=== PATIENT | female | born 1950 | race Caucasian/White ===

== ENCOUNTER → 2016-11-02 | Outpatient (CLI) | payer MEDICAID ==
--- NOTE | 2016-11-03 11:07 | MM ---
Reason for exam: screening (asymptomatic). Last mammogram was performed 1 year ago. History: Patient is postmenopausal. Family history of breast cancer in paternal aunt. Took hormonal contraceptives for 1 year 6 months. Physical Findings: A clinical breast exam by your physician is recommended on an annual basis and results should be correlated with mammographic findings. MG 3D Screening Mammo W/Cad Bilateral CC and MLO view(s) were taken. Prior study comparison: October 19, 2015, bilateral MG 3d screening mammo w/cad. October 01, 2014, mammogram, performed at [facility]. There are scattered fibroglandular densities. There is chronic nodularity in the right breast. No significant changes when compared with prior studies. ASSESSMENT: Benign, BI-RAD 2 RECOMMENDATION: Routine screening mammogram of both breasts in 1 year.
== END | disposition home or self-care (01) ==
LOC: RADMAMWWP 10:46
PROVIDERS: ATTEND Obstetrics & Gynecology
DX: Z12.31 Encounter for screening mammogram for malignant neoplasm of breast (principal)
CPT/HCPCS: 77063; G0202

== ENCOUNTER → 2017-06-24 | Outpatient (CLI) | payer MEDICAID ==
[2017-06-24 10:13] LABS: CH 30.1; CHCM 32.3; HCT 42.4 % (34.0-46.0); HGB 13.7 gm/dL (11.4-16.0); MCH 30.3 pg (25.0-35.0); MCHC 32.4 g/dL (31.0-37.0); MCV 93.6 fL (80.0-100.0); Mean Platelet Volume 7.3; RBC 4.53 m/uL (3.80-5.40); RDW 13.5 % (11.5-15.5); WBC 7.6 k/uL (3.8-10.6)
[2017-06-24 10:46] LABS: ALT 38 U/L (9-52); AST 31 U/L (14-36); Alkaline Phosphatase 80 U/L (38-126); Anion Gap 9 mmol/L; Blood Urea Nitrogen 19 mg/dL (7-17); Calcium 9.4 mg/dL (8.4-10.2); Carbon Dioxide 27 mmol/L (22-30); Chloride 105 mmol/L (98-107); Cholesterol 200 mg/dL (<200); Creatine Kinase 77 U/L (30-135); Glucose 109 mg/dL (74-99); HDL Cholesterol 53 mg/dL (40-60); Non-African American GFR(MDRD) >60 (>60 ml/min/1.73 sqM); Potassium 4.3 mmol/L (3.5-5.1); Sodium 141 mmol/L (137-145)
[2017-06-24 13:52] LABS: Hemoglobin A1C 5.7 % (4.2-6.1)
== END | disposition home or self-care (01) ==
LOC: LABWHC1 09:12
PROVIDERS: ATTEND Family Medicine
DX: I10 Essential (primary) hypertension (principal); E03.9 Hypothyroidism, unspecified; E78.5 Hyperlipidemia, unspecified; R73.09 Other abnormal glucose
CPT/HCPCS: 36415; 80053; 80061; 82550; 83036; 84443; 85027

== ENCOUNTER → 2017-12-06 | Outpatient (CLI) | payer MEDICAID ==
--- NOTE | 2017-12-11 10:23 | MM ---
Reason for exam: screening (asymptomatic). Last mammogram was performed 1 year and 1 month ago. History: Patient is postmenopausal. Family history of breast cancer in paternal aunt. Took hormonal contraceptives for 1 year 6 months. Physical Findings: A clinical breast exam by your physician is recommended on an annual basis and results should be correlated with mammographic findings. MG 3D Screening Mammo W/Cad Bilateral CC and MLO view(s) were taken. Prior study comparison: November 02, 2016, bilateral MG 3d screening mammo w/cad. October 19, 2015, bilateral MG 3d screening mammo w/cad. There are scattered fibroglandular densities. There is chronic nodularity in the right breast. No significant changes when compared with prior studies. ASSESSMENT: Negative, BI-RAD 1 RECOMMENDATION: Routine screening mammogram of both breasts in 1 year.
== END | disposition home or self-care (01) ==
LOC: RADMAMWWP 10:42
PROVIDERS: ATTEND Obstetrics & Gynecology
DX: Z12.31 Encounter for screening mammogram for malignant neoplasm of breast (principal)
CPT/HCPCS: 77063; 77067

== ENCOUNTER → 2018-06-16 | Outpatient (CLI) | payer MEDICAID ==
[2018-06-16 09:54] LABS: HCT 43.1 % (34.0-46.0); HGB 13.9 gm/dL (11.4-16.0); MCH 29.7 pg (25.0-35.0); MCHC 32.3 g/dL (31.0-37.0); Mean Platelet Volume 6.9; Platelet Count 267 k/uL (150-450); RBC 4.68 m/uL (3.80-5.40); RDW 13.9 % (11.5-15.5); WBC 9.5 k/uL (3.8-10.6)
[2018-06-16 10:09] LABS: ALT 23 U/L (9-52); AST 27 U/L (14-36); Albumin 4.1 g/dL (3.5-5.0); Alkaline Phosphatase 71 U/L (38-126); Anion Gap 8 mmol/L; Blood Urea Nitrogen 17 mg/dL (7-17); Calcium 9.3 mg/dL (8.4-10.2); Carbon Dioxide 29 mmol/L (22-30); Chloride 105 mmol/L (98-107); Cholesterol 183 mg/dL (<200); Creatine Kinase 151 U/L (30-135); Glucose 116 mg/dL (74-99); HDL Cholesterol 41 mg/dL (40-60); LDL Cholesterol,Calculated 109 mg/dL (0-99); Potassium 4.4 mmol/L (3.5-5.1); Sodium 142 mmol/L (137-145); Total Bilirubin 1.8 mg/dL (0.2-1.3); Total Protein 6.9 g/dL (6.3-8.2); Triglycerides 167 mg/dL (<150)
[2018-06-16 18:09] LABS: Hemoglobin A1C 5.6 % (4.0-6.0)
== END | disposition home or self-care (01) ==
LOC: LABWHC1 08:58
PROVIDERS: ATTEND Family Medicine
DX: I10 Essential (primary) hypertension (principal); E78.00 Pure hypercholesterolemia, unspecified; E03.9 Hypothyroidism, unspecified; R73.09 Other abnormal glucose
CPT/HCPCS: 36415; 80053; 80061; 82550; 83036; 84443; 85027

== ENCOUNTER → 2018-12-26 | Outpatient (CLI) | payer MEDICARE, BC ==
--- NOTE | 2018-12-27 13:35 | MM ---
Reason for exam: screening (asymptomatic). Last mammogram was performed 1 year and 1 month ago. History: Patient is postmenopausal. Family history of breast cancer in paternal aunt. Took hormonal contraceptives for 1 year 6 months. Physical Findings: A clinical breast exam by your physician is recommended on an annual basis and results should be correlated with mammographic findings. MG 3D Screening Mammo W/Cad Bilateral CC and MLO view(s) were taken. Prior study comparison: December 06, 2017, bilateral MG 3d screening mammo w/cad. November 02, 2016, bilateral MG 3d screening mammo w/cad. There are scattered fibroglandular densities. Finding: There are typically benign vascular, round, diffuse/scattered, grouped calcifications in both breasts. There is a chronic nodularity in the right breast. There is no discrete abnormality. ASSESSMENT: Benign, BI-RAD 2 RECOMMENDATION: Routine screening mammogram of both breasts in 1 year.
== END ==
LOC: RADMAMWWP 10:46
PROVIDERS: ATTEND Obstetrics & Gynecology
DX: Z12.31 Encounter for screening mammogram for malignant neoplasm of breast (principal)
CPT/HCPCS: 77063; 77067

== ENCOUNTER → 2019-02-14 | Outpatient (CLI) | payer MEDICARE, BC ==
--- NOTE | 2019-02-14 09:46 | FL ---
EXAMINATION TYPE: FL barium swallow DATE OF EXAM: 02/14/2019 HISTORY: Remote history of thyroidectomy and tracheostomy in 2000. Mid esophageal dysphagia and globu s sensation for approximately 2 years. TECHNIQUE: A double contrast esophagram study is performed. 1 minute of fluoroscopic time was utiliz ed with 23 fluoroscopic images saved. COMPARISON: None FINDINGS: The esophagus shows abnormal motility and delayed emptying into the stomach secondary to a distal esophageal short segment stricture. There is abrupt cut off of the distal esophagus with accum ulation of contrast in the distal esophagus proximal to the stricture resulting in moderate to severe intraesophageal reflux. No evidence of hiatal hernia. No significant gastroesophageal reflux was se en during real time performance of this study. IMPRESSION: Distal esophageal short segment stricture. Given the abrupt cut off endoscopy is recommended to exclu de constricting distal esophageal mass. The stricture results in moderate to severe intraesophageal r eflux and esophageal dysmotility.
== END | disposition home or self-care (01) ==
LOC: RADFLWHC 08:38
PROVIDERS: ATTEND Otolaryngology
DX: K22.2 Esophageal obstruction (principal); K22.4 Dyskinesia of esophagus; K21.9 Gastro-esophageal reflux disease without esophagitis
CPT/HCPCS: 74220

== ENCOUNTER → 2020-04-06 | Outpatient (CLI) | payer MEDICARE, BC ==
--- NOTE | 2020-04-08 10:28 | MM ---
Reason for exam: screening (asymptomatic). Last mammogram was performed 1 year and 3 months ago. History: Patient is postmenopausal. Family history of breast cancer in paternal aunt. Took hormonal contraceptives for 1 year 6 months. Physical Findings: A clinical breast exam by your physician is recommended on an annual basis and results should be correlated with mammographic findings. MG 3D Screening Mammo W/Cad Bilateral CC and MLO view(s) were taken. Prior study comparison: December 26, 2018, bilateral MG 3d screening mammo w/cad. December 06, 2017, bilateral MG 3d screening mammo w/cad. There are scattered fibroglandular densities. No significant changes when compared with prior studies. ASSESSMENT: Benign, BI-RAD 2 RECOMMENDATION: Routine screening mammogram of both breasts in 1 year.
== END | disposition home or self-care (01) ==
LOC: RADMAMWWP 09:46
PROVIDERS: ATTEND Obstetrics & Gynecology
DX: Z12.31 Encounter for screening mammogram for malignant neoplasm of breast (principal)
CPT/HCPCS: 77063; 77067

== ENCOUNTER → 2021-04-14 | Outpatient (CLI) | payer MEDICARE, BC ==
--- NOTE | 2021-04-14 14:01 | MM ---
Reason for exam: screening (asymptomatic). Last mammogram was performed 1 year ago. History: Patient is postmenopausal. Family history of breast cancer in paternal aunt. Took hormonal contraceptives for 1 year 6 months. Physical Findings: A clinical breast exam by your physician is recommended on an annual basis and results should be correlated with mammographic findings. MG 3D Screening Mammo W/Cad Bilateral CC and MLO view(s) were taken. Prior study comparison: April 06, 2020, bilateral MG 3d screening mammo w/cad. December 26, 2018, bilateral MG 3d screening mammo w/cad. There are scattered fibroglandular densities. ASSESSMENT: Negative, BI-RAD 1 RECOMMENDATION: Routine screening mammogram of both breasts in 1 year.
== END ==
LOC: RADMAMWWP 09:58
PROVIDERS: ATTEND Obstetrics & Gynecology
DX: Z12.31 Encounter for screening mammogram for malignant neoplasm of breast (principal)
CPT/HCPCS: 77063; 77067

== ENCOUNTER → 2022-04-20 | Outpatient (CLI) | payer MEDICARE, BC ==
--- NOTE | 2022-04-21 17:34 | MM ---
Reason for Exam: Screening (asymptomatic). Last screening mammogram was performed 12 month(s) ago. Patient History: Menarche at age 14. First Full-Term at age 24. Postmenopausal. Patient has history of breast feeding. Hormonal Contraceptives for 1 year, 6 months. Paternal aunt had breast cancer, age 82. Risk Values: Zoe 5 year model risk: 1.5%. NCI Lifetime model risk: 4.5%. Prior Study Comparison: 12/26/2018 Bilateral Screening Mammogram, [facility]. 04/06/2020 Bilateral Screening Mammogram, [facility]. 04/14/2021 Bilateral Screening Mammogram, [facility]. Tissue Density: There are scattered fibroglandular densities. Findings: Analyzed By CAD. Chronic nodularity on the right. Benign vascular calcifications on the right. No significant change from prior exams. Overall Assessment: Benign, BI-RAD 2 Management: Screening Mammogram of both breasts in 1 year. 1. Patient should continue monthly self breast exams. 2. A clinical breast exam by your physician is recommended on an annual basis. 3. This exam should not preclude additional follow-up of suspicious palpable abnormalities. Electronically signed and approved by: Hoang Roman M.D. Radiologist
== END | disposition home or self-care (01) ==
LOC: RADMAMWWP 09:54
PROVIDERS: ATTEND Obstetrics & Gynecology
DX: Z12.31 Encounter for screening mammogram for malignant neoplasm of breast (principal); Z80.3 Family history of malignant neoplasm of breast
CPT/HCPCS: 77063; 77067

== ENCOUNTER 2023-04-28 10:47 | Inpatient (IN) | payer MEDICARE, BC ==
[2023-04-28] MEDS ORDERED: NITROGLYCERIN OINT 1 INCH/GM PACKET TOPICAL STA (11:23)
[2023-04-28] MEDS ORDERED: ASPIRIN 81 MG PO STA (11:23)
--- NOTE | 2023-04-28 11:28 | ED ---
General Adult HPI - General Chief complaint: Chest Pain Stated complaint: chest pain, nausea Time Seen by Provider: 04/28/23 11:00 Source: patient, RN notes reviewed, old records reviewed Mode of arrival: ambulatory Limitations: no limitations - History of Present Illness Initial comments: This is a 72-year-old female with past medical history significant for high blood pressure and high cholesterol. Her patient states she started having significant chest heaviness lasted about half hour patient states she's very diaphoretic mildly nauseated and a little bit of shortness of breath per patient denied radiation of the pain. Patient states the pain subsided after about 30 minutes and hasn't returned per patient went to an urgent care and they sent her to the emergency department. Patient denies lightheadedness dizziness per patient denies any headache patient denies numbness weakness. Patient denies any previous heart history. Patient denies any smoking. Patient denies any abdominal pain patient denies any vomiting or diarrhea. Patient denies any back pain. His any calf tenderness or leg swelling - Related Data Home Medications Medication Instructions Recorded Confirmed Levothyroxine Sodium [Synthroid] 100 mcg PO DAILY 04/28/23 04/28/23 Losartan-Hctz 50-12.5 mg [Hyzaar 1 tab PO DAILY 04/28/23 04/28/23 50-12.5] Omeprazole [PriLOSEC] 20 mg PO HS 04/28/23 04/28/23 Pravastatin Sodium [Pravachol] 40 mg PO MOWEFR 04/28/23 04/28/23 Venlafaxine HCl [Effexor XR] 75 mg PO DAILY 04/28/23 04/28/23 atenoloL [Tenormin] 50 mg PO DAILY 04/28/23 04/28/23 Allergies Allergy/AdvReac Type Severity Reaction Status Date / Time hydrocortisone Allergy red face & Verified 04/28/23 13:37 [From Cortizone-10] chest Sulfa (Sulfonamide Allergy Rash/Hives Verified 04/28/23 13:37 Antibiotics) sulfamethoxazole Allergy Rash/Hives Verified 04/28/23 13:37 [From Bactrim] trimethoprim [From Bactrim] Allergy Rash/Hives Verified 04/28/23 13:37 Review of Systems ROS Statement: Those systems with pertinent positive or pertinent negative responses have been documented in the HPI. ROS Other: All systems not noted in ROS Statement are negative. Past Medical History Past Medical History: GERD/Reflux, Hypertension, Thyroid Disorder Additional Past Medical History / Comment(s): ARDS History of Any Multi-Drug Resistant Organisms: None Reported Additional Past Surgical History / Comment(s): thyroidectomy, tracheotomy Past Psychological History: No Psychological Hx Reported Smoking Status: Never smoker Past Alcohol Use History: None Reported Past Drug Use History: None Reported General Exam - General Exam Comments Initial Comments: GENERAL: Patient is well-developed and well-nourished. Patient is nontoxic and well- hydrated and is in mild distress. ENT: Neck is soft and supple. No significant lymphadenopathy is noted. Oropharynx is clear. Moist mucous membranes. Neck has full range of motion without eliciting any pain. EYES: The sclera were anicteric and conjunctiva were pink and moist. Extraocular movements were intact and pupils were equal round and reactive to light. E yelids were unremarkable. PULMONARY: Unlabored respirations. Good breath sounds bilaterally. No audible rales rhonchi or wheezing was noted. CARDIOVASCULAR: There is a regular rate and rhythm without any murmurs gallops or rubs. ABDOMEN: Soft and nontender with normal bowel sounds. SKIN: Skin is clear with no lesions or rashes and otherwise unremarkable. NEUROLOGIC: Patient is alert and oriented x3. Cranial nerves II through XII are grossly intact. Motor and sensory are also intact. Normal speech, volume and content. Symmetrical smile. MUSCULOSKELETAL: Normal extremities with adequate strength and full range of motion. LYMPHATICS: No significant lymphadenopathy is noted PSYCHIATRIC: Normal psychiatric evaluation. Limitations: no limitations Course Vital Signs 04/28/23 04/28/23 10:48 11:52 Temperature 98.8 F Pulse Rate 68 63 Respiratory 16 18 Rate Blood Pressure 152/68 135/72 O2 Sat by Pulse 96 95 Oximetry Medical Decision Making - Medical Decision Making EKG was interpreted by myself and shows a sinus rhythm at 65 bpm OK interval is on a 64 Shook is 96 QT interval 33 QTC is 394 per patient's EKG shows no ST se gment elevation or depression. Was pt. sent in by a medical professional or institution (, PA, AGRICULTURAL CHEMIST, urgent care, hospital, or correction...) When possible be specific @ -Patient was sent in by the urgent care Did you speak to anyone other than the patient for history (EMS, parent, family, police, friend...)? What history was obtained from this source @ -No Did you review nursing and triage notes (agree or disagree)? Why? @ -I reviewed and agree with nursing and triage notes Were old charts reviewed (outside hosp., previous admission, EMS record, old EKG, old radiological studies, urgent care reports/EKG's, correction records)? Report findings @ -I reviewed prior charts in prior laboratory on this patient Differential Diagnosis (chest pain, altered mental status, abdominal pain women, abdominal pain men, vaginal bleeding, weakness, fever, dyspnea, syncope, headache, dizziness, GI bleed, back pain, seizure, CVA, palpatations, mental health, musculoskeletal)? @ -Differential Chest Pain: Stable Angina, Unstable Angina, STEMI, NSTEMI Aortic Dissection, Pneumothorax, Musculoskeletal, Esophageal Spasm GERD, Cholecystitis, Pancreatitis, Zoster, this is not meant to be an all-inclusive list. EKG interpreted by me (3pts min.). @ -As above X-rays interpreted by me (1pt min.). @ -X-ray of the chest showed no acute abnormality CT interpreted by me (1pt min.). @ -None done U/S interpreted by me (1pt. min.). @ -None done What testing was considered but not performed or refused? (CT, X-rays, U/S, la bs)? Why? @ -None What meds were considered but not given or refused? Why? @ -None Did you discuss the management of the patient with other professionals (professionals i.e. , PA, AGRICULTURAL CHEMIST, lab, RT, psych nurse, social services analyst, waterworks employee, teacher, security patrol officer, case filler)? Give summary @ -I spoke with the [facility] Hospitalist agreed to admit the patient admitted the patient wrote admitting orders Was smoking cessation discussed for >3mins.? @ -No Was critical care preformed (if so, how long)? @ -No Were there social determinants of health that impacted care today? How? (Homelessness, low income, unemployed, alcoholism, drug addiction, transportation, low edu. Level, literacy, decrease access to med. care, alf, rehab)? @ -No Was there de-escalation of care discussed even if they declined (Discuss DNR or withdrawal of care, Hospice)? DNR status @ -No What co-morbidities impacted this encounter? (DM, HTN, Smoking, COPD, CAD, Cancer, CVA, ARF, Chemo, Hep., AIDS, mental health diagnosis, sleep apnea, morbid obesity)? @ -None Was patient admitted / discharged? Hospital course, mention meds given and route, prescriptions, significant lab abnormalities, going to OR and other p ertinent info. @ -Patient had no chest pain while in the emergency department with chest pain she did have was significant and she had risk factors so I determined to admit the patient I spoke with the hospitalist agreed to admit the patient admitted the patient wrote admitting orders. I consulted cardiology. Patient was given aspirin and Nitropaste Undiagnosed new problem with uncertain prognosis? @ -No Drug Therapy requiring intensive monitoring for toxicity (Heparin, Nitro, Insulin, Cardizem)? @ -No Were any procedures done? @ -No Diagnosis/symptom? @ -Chest pain. Acute, or Chronic, or Acute on Chronic? @ -Acute Uncomplicated (without systemic symptoms) or Complicated (systemic symptoms)? @ -default Side effects of treatment? @ -No Exacerbation, Progression, or Severe Exacerbation? @ -No Poses a threat to life or bodily function? How? (Chest pain, USA, IA, pneumonia, PE, COPD, DKA, ARF, appy, cholecystitis, CVA, Diverticulitis, Homicidal, Suicidal, threat to staff... and all critical care pts) @ -Yes. This leads to could lead to an MRI and end organ dysfunction - Lab Data Result diagrams: 04/28/23 11:36 04/28/23 11:36 Lab Results 04/28/23 04/28/23 04/28/23 Range/Units 11:36 11:36 11:36 WBC 8.1 (3.8-10.6) k/uL RBC 4.31 (3.80-5.40) m/uL Hgb 13.6 (11.4-16.0) gm/dL Hct 39.5 (34.0-46.0) % MCV 91.8 (80.0-100.0) fL MCH 31.6 (25.0-35.0) pg MCHC 34.5 (31.0-37.0) g/dL RDW 13.6 (11.5-15.5) % Plt Count 238 (150-450) k/uL MPV 7.5 Neutrophils % 48 % Lymphocytes % 41 % Monocytes % 7 % Eosinophils % 2 % Basophils % 1 % Neutrophils # 3.9 (1.3-7.7) k/uL Lymphocytes # 3.3 (1.0-4.8) k/uL Monocytes # 0.5 (0-1.0) k/uL Eosinophils # 0.1 (0-0.7) k/uL Basophils # 0.1 (0-0.2) k/uL PT 9.6 (9.0-12.0) sec INR 0.9 (<1.2) APTT 27.1 (22.0-30.0) sec Sodium 136 L (137-145) mmol/L Potassium 3.8 (3.5-5.1) mmol/L Chloride 102 (98-107) mmol/L Carbon Dioxide 30 (22-30) mmol/L Anion Gap 4 mmol/L BUN 17 (7-17) mg/dL Creatinine 0.71 (0.52-1.04) mg/dL Est GFR (CKD-EPI)AfAm >90 (>60 ml/min/1.73 sqM) Est GFR (CKD-EPI)NonAf 86 (>60 ml/min/1.73 sqM) Glucose 98 (74-99) mg/dL Calcium 9.0 (8.4-10.2) mg/dL Magnesium 2.0 (1.6-2.3) mg/dL Total Bilirubin 2.1 H (0.2-1.3) mg/dL AST 143 H (14-36) U/L ALT 136 H (4-34) U/L Alkaline Phosphatase 99 (38-126) U/L Troponin I (0.000-0.034) ng/mL Total Protein 6.8 (6.3-8.2) g/dL Albumin 4.1 (3.5-5.0) g/dL 04/28/23 Range/Units 11:36 WBC (3.8-10.6) k/uL RBC (3.80-5.40) m/uL Hgb (11.4-16.0) gm/dL Hct (34.0-46.0) % MCV (80.0-100.0) fL MCH (25.0-35.0) pg MCHC (31.0-37.0) g/dL RDW (11.5-15.5) % Plt Count (150-450) k/uL MPV Neutrophils % % Lymphocytes % % Monocytes % % Eosinophils % % Basophils % % Neutrophils # (1.3-7.7) k/uL Lymphocytes # (1.0-4.8) k/uL Monocytes # (0-1.0) k/uL Eosinophils # (0-0.7) k/uL Basophils # (0-0.2) k/uL PT (9.0-12.0) sec INR (<1.2) APTT (22.0-30.0) sec Sodium (137-145) mmol/L Potassium (3.5-5.1) mmol/L Chloride (98-107) mmol/L Carbon Dioxide (22-30) mmol/L Anion Gap mmol/L BUN (7-17) mg/dL Creatinine (0.52-1.04) mg/dL Est GFR (CKD-EPI)AfAm (>60 ml/min/1.73 sqM) Est GFR (CKD-EPI)NonAf (>60 ml/min/1.73 sqM) Glucose (74-99) mg/dL Calcium (8.4-10.2) mg/dL Magnesium (1.6-2.3) mg/dL Total Bilirubin (0.2-1.3) mg/dL AST (14-36) U/L ALT (4-34) U/L Alkaline Phosphatase (38-126) U/L Troponin I <0.012 (0.000-0.034) ng/mL Total Protein (6.3-8.2) g/dL Albumin (3.5-5.0) g/dL Disposition Clinical Impression: Chest pain Disposition: ADMITTED IP TO THIS HOSP Referrals: Taqueria Pelletier MD [Primary Care Provider] - 1-2 days Time of Disposition: 13:00
[2023-04-28 11:52] LABS: Basophils # (A) 0.1 k/uL (0-0.2); Basophils % (A) 1 %; Eosinophils # (A) 0.1 k/uL (0-0.7); Eosinophils % (A) 2 %; HCT 39.5 % (34.0-46.0); HGB 13.6 gm/dL (11.4-16.0); Lymphocytes # (A) 3.3 k/uL (1.0-4.8); Lymphocytes % (A) 41 %; MCH 31.6 pg (25.0-35.0); MCHC 34.5 g/dL (31.0-37.0); MCV 91.8 fL (80.0-100.0); Mean Platelet Volume 7.5; Monocytes # (A) 0.5 k/uL (0-1.0); Monocytes % (A) 7 %; Neutrophils # (A) 3.9 k/uL (1.3-7.7); Neutrophils % (A) 48 %; Platelet Count 238 k/uL (150-450); RBC 4.31 m/uL (3.80-5.40); RDW 13.6 % (11.5-15.5); WBC 8.1 k/uL (3.8-10.6)
[2023-04-28 12:03] LABS: ALT 136 U/L (4-34); AST 143 U/L (14-36); African American GFR (CKD) >90 (>60 ml/min/1.73 sqM); Albumin 4.1 g/dL (3.5-5.0); Alkaline Phosphatase 99 U/L (38-126); Anion Gap 4 mmol/L; Blood Urea Nitrogen 17 mg/dL (7-17); Carbon Dioxide 30 mmol/L (22-30); Chloride 102 mmol/L (98-107); Glucose 98 mg/dL (74-99); INR 0.9 (<1.2); Non-African American GFR(CKD) 86 (>60 ml/min/1.73 sqM); Partial Thromboplastin Time 27.1 sec (22.0-30.0); Potassium 3.8 mmol/L (3.5-5.1); Prothrombin Time 9.6 sec (9.0-12.0); Sodium 136 mmol/L (137-145); Total Bilirubin 2.1 mg/dL (0.2-1.3); Total Protein 6.8 g/dL (6.3-8.2)
--- NOTE | 2023-04-28 12:09 | XR ---
EXAMINATION TYPE: XR chest 2V DATE OF EXAM: 04/28/2023 12:03 PM COMPARISON: None TECHNIQUE: XR chest 2V Frontal and lateral views of the chest. CLINICAL INDICATION:Female, 72 years old with history of Chest Pain; FINDINGS: Lungs/Pleura: There is no evidence of pleural effusion, focal consolidation, or pneumothorax. Hyperi nflation with flattening of the hemidiaphragms. Pulmonary vascularity: Unremarkable. Heart/mediastinum: Cardiomediastinal silhouette is unremarkable. Musculoskeletal: No acute osseous pathology. Degenerative changes of the thoracic spine. IMPRESSION: 1. No acute cardiopulmonary disease/process. 2. COPD changes suggested.
[2023-04-28] MEDS ORDERED: NITROGLYCERIN SL TABS 0.4 MG TAB SUBLINGUAL PRN (14:09)
[2023-04-28] MEDS ORDERED: PRAVASTATIN SODIUM 40 MG TAB PO SCH (15:00)
[2023-04-28] MEDS: NITROGLYCERIN OINT 1 INCH/GM PACKET TOPICAL SCH ×2 (18:01→23:55)
[2023-04-28] MEDS: PANTOPRAZOLE 40 MG TABLET PO SCH (20:03)
[2023-04-29] MEDS: NITROGLYCERIN OINT 1 INCH/GM PACKET TOPICAL SCH (05:29)
[2023-04-29] MEDS ORDERED: ASPIRIN 325 MG TAB PO SCH (09:00)
[2023-04-29 09:25] LABS: LDL Cholesterol,Calculated 126.4 mg/dL (0.0-131.0)
[2023-04-29] MEDS: atenoloL 50 MG TAB PO SCH (09:27)
[2023-04-29] MEDS: LEVOTHYROXINE 100 MCG TAB PO SCH (09:27)
[2023-04-29] MEDS: ASPIRIN 81 MG PO SCH (09:35)
[2023-04-29] MEDS: PRAVASTATIN SODIUM 40 MG TAB PO SCH (09:35)
--- NOTE | 2023-04-29 11:10 | P.CRDCN ---
History of Present Illness History of present illness: HISTORY OF PRESENT ILLNESS: This is a 72-year-old female with a past medical history significant for hypothyroidism, hypertension, and hyperlipidemia. 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 We have been asked to see the patient in consultation for chest pain. Patient examined at the bedside. Patient states she was outside working around her house when she began to have chest pain. She states the pain was in the middle of her chest and felt like a pressure type sensation and also a burning sensation. She is unsure if she was short of breath at the time. She denied any radiation of the pain. She states that she went inside to rest and took a shower. She states when she got out of the shower she had an episode of severe diaphoresis but was not having chest pain at that time. She states the episode of chest pain lasted for approximately one hour. She denies any chest pain or pressure at the time of the examination. She states that she had a stress test a few years ago which was normal to her knowledge. She denies a family history of coronary artery disease. She is a nonsmoker. She denies any alcohol or drug use including marijuana. * EKG reveals sinus mechanism with no signs of acute ischemia * Chest xray no acute cardiopulmonary disease/process * Laboratory data: WBC 8.1. Hemoglobin 13.6. Platelet count 238. Sodium 136. Potassium 3.8. BUN 17. Creatinine 0.71. AST 143. ALT 136. Troponin negative 3. * Current home cardiac medications include atenolol 50 mg daily, pravastatin 40 mg Monday, and losartan-hydrochlorothiazide 50-12.5mg daily REVIEW OF SYSTEMS: At the time of my exam: CONSTITUTIONAL: Denies fever or chills. HEENT: Denies blurred vision, vision changes, or eye pain. Denies hemoptysis CARDIOVASCULAR: Denies chest pain. Denies orthopnea. Denies PND. Denies palpitations RESPIRATORY: Denies shortness of breath. GASTROINTESTINAL: Denies abdominal pain. Denies nausea or vomiting. HEMATOLOGIC: Denies bleeding disorders. GENITOURINARY: Denies any blood in urine. SKIN: Denies pruitis. Denies rash. PHYSICAL EXAM: VITAL SIGNS: Reviewed. GENERAL: Well-developed in no acute distress. HEENT: Head is normocephalic. Pupils are equal, round. Sclerae anicteric. Mucous membranes of the mouth are moist. Neck supple. No JVD or thyromegaly LUNGS: Respirations even and unlabored. Lungs essentially clear to auscultation bilaterally. HEART: Regular rate and rhythm. S1 and S2 heard. ABDOMEN: Soft. Nondistended. Nontender. EXTREMITIES: Normal range of motion. No clubbing or cyanosis. Peripheral pulses intact. No lower extremity edema NEUROLOGIC: Awake and alert. Oriented x 3. ASSESSMENT: Chest pain, troponins negative 3 Hypertension Hyperlipidemia Hypothyroidism PLAN: An acute coronary event has been ruled out Obtain 2-D echo to assess cardiac structure and function Begin aspirin 81 mg daily Change statin therapy to daily dosing instead of Monday. Obtain lipid panel Resume additional home cardiac medications Patient to undergo stress echocardiogram on Monday Hold atenolol the morning of stress echocardiogram Further recommendations pending patient's course Nurse practitioner note has been reviewed by physician. Signing provider agrees with the documented findings, assessment, and plan of care. Past Medical History Past Medical History: GERD/Reflux, Hypertension, Thyroid Disorder Additional Past Medical History / Comment(s): ARDS 2020 History of Any Multi-Drug Resistant Organisms: None Reported Additional Past Surgical History / Comment(s): thyroidectomy, tracheotomy Past Anesthesia/Blood Transfusion Reactions: No Reported Reaction Past Psychological History: No Psychological Hx Reported Smoking Status: Never smoker Past Alcohol Use History: None Reported Past Drug Use History: None Reported Medications and Allergies Home Medications Medication Instructions Recorded Confirmed Type Levothyroxine Sodium [Synthroid] 100 mcg PO DAILY 04/28/23 04/28/23 History Losartan-Hctz 50-12.5 mg [Hyzaar 1 tab PO DAILY 04/28/23 04/28/23 History 50-12.5] Omeprazole [PriLOSEC] 20 mg PO HS 04/28/23 04/28/23 History Pravastatin Sodium [Pravachol] 40 mg PO MOWEFR 04/28/23 04/28/23 History Venlafaxine HCl [Effexor XR] 75 mg PO DAILY 04/28/23 04/28/23 History atenoloL [Tenormin] 50 mg PO DAILY 04/28/23 04/28/23 History Allergies Allergy/AdvReac Type Severity Reaction Status Date / Time hydrocortisone Allergy red face & Verified 04/28/23 13:37 [From Cortizone-10] chest Sulfa (Sulfonamide Allergy Rash/Hives Verified 04/28/23 13:37 Antibiotics) sulfamethoxazole Allergy Rash/Hives Verified 04/28/23 13:37 [From Bactrim] trimethoprim [From Bactrim] Allergy Rash/Hives Verified 04/28/23 13:37 Physical Exam Vitals: Vital Signs Temp Pulse Pulse Resp BP BP Pulse Ox 04/29/23 02:21 98.4 F 68 16 99/62 94 L 04/28/23 19:50 98.2 F 74 15 122/70 94 L 04/28/23 18:00 73 17 109/59 96 04/28/23 15:00 68 18 107/55 97 04/28/23 11:52 63 18 135/72 95 04/28/23 10:48 98.8 F 68 16 152/68 96 Intake and Output 04/28/23 04/29/23 04/29/23 22:59 06:59 14:59 Other: # Voids 1 1 Weight 81.647 kg Results 04/28/23 11:36 04/28/23 11:36 Cardiac Enzymes 04/28/23 04/28/23 04/28/23 Range/Units 11:36 11:36 14:22 AST 143 H (14-36) U/L Troponin I <0.012 <0.012 (0.000-0.034) ng/mL 04/28/23 Range/Units 16:56 AST (14-36) U/L Troponin I <0.012 (0.000-0.034) ng/mL Coagulation 04/28/23 Range/Units 11:36 PT 9.6 (9.0-12.0) sec APTT 27.1 (22.0-30.0) sec CBC 04/28/23 Range/Units 11:36 WBC 8.1 (3.8-10.6) k/uL RBC 4.31 (3.80-5.40) m/uL Hgb 13.6 (11.4-16.0) gm/dL Hct 39.5 (34.0-46.0) % Plt Count 238 (150-450) k/uL Comprehensive Metabolic Panel 04/28/23 Range/Units 11:36 Sodium 136 L (137-145) mmol/L Potassium 3.8 (3.5-5.1) mmol/L Chloride 102 (98-107) mmol/L Carbon Dioxide 30 (22-30) mmol/L BUN 17 (7-17) mg/dL Creatinine 0.71 (0.52-1.04) mg/dL Glucose 98 (74-99) mg/dL Calcium 9.0 (8.4-10.2) mg/dL AST 143 H (14-36) U/L ALT 136 H (4-34) U/L Alkaline Phosphatase 99 (38-126) U/L Total Protein 6.8 (6.3-8.2) g/dL Albumin 4.1 (3.5-5.0) g/dL Current Medications Generic Name Dose Route Start Last Admin Trade Name Freq PRN Reason Stop Dose Admin Aspirin 325 mg 04/29/23 09:00 Aspirin 325 Mg Tab PO DAILY [facility] Atenolol 50 mg 04/29/23 09:00 Atenolol 50 Mg Tab PO DAILY [facility] HCTZ/Losartan Potassium 1 each 04/29/23 09:00 Losartan-Hctz 50-12.5 Mg 1 Each Tab PO DAILY [facility] Levothyroxine Sodium 100 mcg 04/29/23 09:00 Levothyroxine 100 Mcg Tab PO DAILY [facility] Nitroglycerin 0.4 mg 04/28/23 14:09 Nitroglycerin Sl Tabs 0.4 Mg Tab SUBLINGUAL Q5M PRN Chest Pain Nitroglycerin 1 inch 04/28/23 18:00 04/29/23 05:29 Nitroglycerin Oint 1 Inch/Gm Packet TOPICAL Not Given Q6HR [facility] Pantoprazole Sodium 40 mg 04/28/23 21:00 04/28/23 20:03 Pantoprazole 40 Mg Tablet PO 40 mg HS [facility] Administration Pravastatin Sodium 40 mg 04/28/23 15:00 04/28/23 15:14 Pravastatin Sodium 40 Mg Tab PO 40 mg MOWEFR [facility] Administration Venlafaxine HCl 75 mg 04/29/23 09:00 Venlafaxine Hcl Er 75 Mg Cap PO DAILY [facility] Intake and Output 04/28/23 04/29/23 04/29/23 22:59 06:59 14:59 Other: # Voids 1 1 Weight 81.647 kg 04/28/23 11:36 04/28/23 11:36
[2023-04-29] MEDS: VENLAFAXINE HCL ER 75 MG CAP PO SCH (12:11)
[2023-04-29] MEDS: LOSARTAN-HCTZ 50-12.5 MG 1 EACH TAB PO SCH ×2 (12:11→12:38)
--- NOTE | 2023-04-29 16:52 | CA ---
Transthoracic Echo Report Name: Suma Tay Age: 72 Gender: F : 1950 Exam Date: 04/29/2023 11:38 Exam Location: [facility] Ht (in): 63 Wt (lb): 180 Ordering Physician: Emily Nolasco Attending/Referring Phys: [id number], Constance Mammographer Ree Pritchard [facility] Procedure CPT: Indications: LV function, chest pain Cardiac Hx: Technical Quality: Fair Contrast 1: Total Dose (mL): Contrast 2: Total Dose (mL): MEASUREMENTS (Male / Female) Normal Values 2D ECHO LV Diastolic Diameter PLAX 4.2 cm 4.2 - 5.9 / 3.9 - 5.3 cm LV Systolic Diameter PLAX 2.7 cm IVS Diastolic Thickness 1.1 cm 0.6 - 1.0 / 0.6 - 0.9 cm LVPW Diastolic Thickness 1.1 cm 0.6 - 1.0 / 0.6 - 0.9 cm LV Relative Wall Thickness 0.5 LVOT Diameter 2.0 cm Ascending Aorta Diameter 2.7 cm M-MODE Aortic Root Diameter MM 2.6 cm LA Systolic Diameter MM 4.0 cm LA Ao Ratio MM 1.5 AV Cusp Separation MM 1.9 cm DOPPLER AV Peak Velocity 221.1 cm/s AV Peak Gradient 19.5 mmHg AV Mean Velocity 182.5 cm/s AV Mean Gradient 13.9 mmHg AV Velocity Time Integral 51.8 cm LVOT Peak Velocity 119.0 cm/s LVOT Peak Gradient 5.7 mmHg LVOT Velocity Time Integral 27.6 cm LVOT Stroke Volume 88.9 cm??? LVOT Stroke Volume Index 48.1 ml/m??? LVOT Cardiac Index 3031.6 cm???/min???m??? AV Area Cont Eq vti 1.7 cm??? AV Area Cont Eq pk 1.7 cm??? Mitral E Point Velocity 58.3 cm/s Mitral A Point Velocity 81.0 cm/s Mitral E to A Ratio 0.7 MV Deceleration Time 221.8 ms LV E' Lateral Velocity 8.0 cm/s Mitral E to LV E' Lateral Ratio 7.3 LV E' Septal Velocity 4.4 cm/s Mitral E to LV E' Septal Ratio 13.2 TR Peak Velocity 209.3 cm/s TR Peak Gradient 17.5 mmHg Right Atrial Pressure 3.0 mmHg Pulmonary Artery Systolic Pressu 20.5 mmHg Right Ventricular Systolic Press 20.5 mmHg FINDINGS Left Ventricle Normal Left ventricular size, systolic function with no obvious regional wall motion abnormalities. Mildly increased left ventricular wall thickness. Left ventricular ejection fraction is estimated at 60-65%Septal hypertrophy. Right Ventricle Right ventricle at upper limits of normal. Right Atrium Normal right atrial size. Left Atrium Normal left atrial size. Mitral Valve Structurally normal mitral valve. No mitral regurgitation. Aortic Valve Trileaflet aortic valve. Thickened aortic valve. Mild aortic stenosis with a peak gradient of 19.5 mmHg and a mean gradient of 13.9 mmHg. Tricuspid Valve Structurally normal tricuspid valve. Trace tricuspid regurgitation. Pulmonic Valve Structurally normal pulmonic valve. Mild pulmonic regurgitation. Pericardium No pericardial effusion. Echo free space anterior to the right ventricle likely represents a fat pad. Aorta Normal size aortic root and proximal ascending aorta. CONCLUSIONS Normal LV systolic function Mild aortic stenosis Previewed by: Dr. Nicholas Cook MD (Electronically Signed) Final Date: 29 April 2023 16:51
--- NOTE | 2023-04-29 20:45 | P.HPIM ---
History of Present Illness H&P Date: 04/28/23 Chief Complaint: Chest pain 72-year-old female with past medical history significant for high blood pressure and high cholesterol. Her patient states she started having significant chest heaviness lasted about half hour patient states she's very diaphoretic mildly nauseated and a little bit of shortness of breath per patient denied radiation of the pain. Patient states the pain subsided after about 30 minutes and hasn't returned per patient went to an urgent care and they sent her to the emergency department. Patient denies lightheadedness dizziness per patient denies any headache patient denies numbness weakness. Patient denies any previous heart history. Patient denies any smoking. Patient denies any abdominal pain patient denies any vomiting or diarrhea. Patient denies any back pain. His any calf tenderness or leg swelling EKG reveals sinus mechanism with no signs of acute ischemia Chest xray no acute cardiopulmonary disease/process Laboratory data: WBC 8.1. Hemoglobin 13.6. Platelet count 238. Sodium 136. Potassium 3.8. BUN 17. Creatinine 0.71. AST 143. ALT 136. Troponin negative 3. Current home cardiac medications include atenolol 50 mg daily, pravastatin 40 mg Monday, and losartan-hydrochlorothiazide 50-12.5mg daily Review of Systems REVIEW OF SYSTEMS: CONSTITUTIONAL: No fever, no malaise, no fatigue. HEENT: No recent visual problems or hearing problems. Denied any sore throat. CARDIOVASCULAR: No chest pain, orthopnea, PND, no palpitations, no syncope. PULMONARY: No shortness of breath, no cough, no hemoptysis. GASTROINTESTINAL: No diarrhea, no nausea, no vomiting, no abdominal pain. NEUROLOGICAL: No headaches, no weakness, no numbness. HEMATOLOGICAL: Denies any bleeding or petechiae. GENITOURINARY: Denies any burning micturition, frequency, or urgency. MUSCULOSKELETAL/RHEUMATOLOGICAL: Denies any joint pain, swelling, or any muscle pain. ENDOCRINE: Denies any polyuria or polydipsia. The rest of the 14-point review of systems is negative. Past Medical History Past Medical History: GERD/Reflux, Hypertension, Thyroid Disorder Additional Past Medical History / Comment(s): ARDS History of Any Multi-Drug Resistant Organisms: None Reported Additional Past Surgical History / Comment(s): thyroidectomy, tracheotomy Past Psychological History: No Psychological Hx Reported Smoking Status: Never smoker Past Alcohol Use History: None Reported Past Drug Use History: None Reported Medications and Allergies Home Medications Medication Instructions Recorded Confirmed Type Levothyroxine Sodium [Synthroid] 100 mcg PO DAILY 04/28/23 04/28/23 History Losartan-Hctz 50-12.5 mg [Hyzaar 1 tab PO DAILY 04/28/23 04/28/23 History 50-12.5] Omeprazole [PriLOSEC] 20 mg PO HS 04/28/23 04/28/23 History Pravastatin Sodium [Pravachol] 40 mg PO MOWEFR 04/28/23 04/28/23 History Venlafaxine HCl [Effexor XR] 75 mg PO DAILY 04/28/23 04/28/23 History atenoloL [Tenormin] 50 mg PO DAILY 04/28/23 04/28/23 History Allergies Allergy/AdvReac Type Severity Reaction Status Date / Time hydrocortisone Allergy red face & Verified 04/28/23 13:37 [From Cortizone-10] chest Sulfa (Sulfonamide Allergy Rash/Hives Verified 04/28/23 13:37 Antibiotics) sulfamethoxazole Allergy Rash/Hives Verified 04/28/23 13:37 [From Bactrim] trimethoprim [From Bactrim] Allergy Rash/Hives Verified 04/28/23 13:37 Physical Exam Vitals: Vital Signs Temp Pulse Resp BP Pulse Ox 04/28/23 11:52 63 18 135/72 95 04/28/23 10:48 98.8 F 68 16 152/68 96 Intake and Output 04/27/23 04/28/23 04/28/23 22:59 06:59 14:59 Other: Weight 81.647 kg GENERAL: Well-developed in no acute distress. HEENT: Head is normocephalic. Pupils are equal, round. Sclerae anicteric. Mucous membranes of the mouth are moist. Neck supple. No JVD or thyromegaly LUNGS: Respirations even and unlabored. Lungs essentially clear to auscultation bilaterally. HEART: Regular rate and rhythm. S1 and S2 heard. ABDOMEN: Soft. Nondistended. Nontender. EXTREMITIES: Normal range of motion. No clubbing or cyanosis. Peripheral pulses intact. No lower extremity edema NEUROLOGIC: Awake and alert. Oriented x 3. Results CBC & Chem 7: 04/28/23 11:36 04/28/23 11:36 Labs: Abnormal Lab Results - Last 24 Hours (Table) 04/28/23 Range/Units 11:36 Sodium 136 L (137-145) mmol/L Total Bilirubin 2.1 H (0.2-1.3) mg/dL AST 143 H (14-36) U/L ALT 136 H (4-34) U/L Assessment and Plan Assessment: 1. Chest pain Patient will be admitted to telemetry with plans to monitor EKG and trend troponin - We will continue with aspirin and statin therapy Recommending 2-D echo -- Cardiology is consulted 2. Transaminitis; possibly related to statin use; we will monitor liver enzymes with plans for further workup if liver enzymes continue to trend up 2. Hypertension; losartanTZ 5012 0.5 mg daily; atenolol 50 mg daily 3. Hyperlipidemia; continue with home dose of pravastatin 4. Hypothyroidism; Levothyroxine 100 MCG daily 5. GERD/gastritis; omeprazole 20 mg daily DVT prophylaxis; SCDs CODE STATUS; full code
[2023-04-29] MEDS: PANTOPRAZOLE 40 MG TABLET PO SCH (21:11)
[2023-04-30 09:08] LABS: Basophils # (A) 0.07 X 10*3/uL (0.00-0.10); Basophils % (A) 0.9 %; Eosinophils # (A) 0.12 X 10*3/uL (0.04-0.35); Eosinophils % (A) 1.6 %; HCT 41.2 % (37.2-46.3); HGB 13.8 d/dL (12.0-15.0); Lymphocytes % (A) 38.2 %; MCH 31.4 pg (27.0-32.0); MCHC 33.5 d/dL (32.0-37.0); MCV 93.6 FL (80.0-97.0); Mean Platelet Volume 10.3 FL (9.5-12.2); Monocytes # (A) 0.65 X 10*3/uL (0.20-1.00); Monocytes % (A) 8.6 %; NRBC Per 100 WBC 0 X 10*3/uL (0.00-0.01); Neutrophils # (A) 3.85 X 10*3/uL (1.80-7.70); Neutrophils % (A) 50.6 %; Platelet Count 248 X 10*3/uL (140-440); RDW 13.4 % (11.5-14.5)
[2023-04-30 09:16] LABS: BUN/Creat Ratio 20.25 Ratio (12.00-20.00); Blood Urea Nitrogen 16.2 mg/dL (9.0-27.0); Calcium 9.4 mg/dL (8.7-10.3); Carbon Dioxide 25.9 mmol/L (21.6-31.8); Chloride 105 mmol/L (96-109); Glucose 129 mg/dL (70-110); Potassium 4.1 mmol/L (3.5-5.5); Sodium 142 mmol/L (135-145)
[2023-04-30] MEDS: LOSARTAN-HCTZ 50-12.5 MG 1 EACH TAB PO SCH (09:22)
[2023-04-30] MEDS: ASPIRIN 81 MG PO SCH (09:22)
[2023-04-30] MEDS: VENLAFAXINE HCL ER 75 MG CAP PO SCH (09:22)
[2023-04-30] MEDS: atenoloL 50 MG TAB PO SCH (09:22)
[2023-04-30] MEDS: LEVOTHYROXINE 100 MCG TAB PO SCH (09:22)
[2023-04-30] MEDS: PRAVASTATIN SODIUM 40 MG TAB PO SCH (09:22)
--- NOTE | 2023-04-30 09:56 | P.PN ---
Subjective Progress Note Date: 04/29/23 72-year-old female with past medical history significant for high blood pressure and high cholesterol. Her patient states she started having significant chest heaviness lasted about half hour patient states she's very diaphoretic mildly nauseated and a little bit of shortness of breath per patient denied radiation of the pain. Patient states the pain subsided after about 30 minutes and hasn't returned per patient went to an urgent care and they sent her to the emergency department. Patient denies lightheadedness dizziness per patient denies any headache patient denies numbness weakness. Patient denies any previous heart history. Patient denies any smoking. Patient denies any abdominal pain patient denies any vomiting or diarrhea. Patient denies any back pain. His any calf tenderness or leg swelling EKG reveals sinus mechanism with no signs of acute ischemia Chest xray no acute cardiopulmonary disease/process Laboratory data: WBC 8.1. Hemoglobin 13.6. Platelet count 238. Sodium 136. Potassium 3.8. BUN 17. Creatinine 0.71. AST 143. ALT 136. Troponin negative 3. Current home cardiac medications include atenolol 50 mg daily, pravastatin 40 mg Monday, and losartan-hydrochlorothiazide 50-12.5mg daily Objective - Vital Signs Vital signs: Vital Signs Temp 98.6 F 04/29/23 15:00 Pulse 72 04/29/23 15:00 Resp 16 04/29/23 15:00 BP 125/89 04/29/23 15:00 Pulse Ox 96 04/29/23 15:00 FiO2 Intake & Output 04/28/23 04/29/23 04/29/23 18:59 06:59 18:59 Weight 81.647 kg Other: # Voids 1 2 - Exam GENERAL: Well-developed in no acute distress. HEENT: Head is normocephalic. Pupils are equal, round. Sclerae anicteric. Mucous membranes of the mouth are moist. Neck supple. No JVD or thyromegaly LUNGS: Respirations even and unlabored. Lungs essentially clear to auscultation bilaterally. HEART: Regular rate and rhythm. S1 and S2 heard. ABDOMEN: Soft. Nondistended. Nontender. EXTREMITIES: Normal range of motion. No clubbing or cyanosis. Peripheral pulses intact. No lower extremity edema NEUROLOGIC: Awake and alert. Oriented x 3. - Labs CBC & Chem 7: 08/06/23 05:46 04/30/23 05:46 Labs: Abnormal Lab Results - Last 24 Hours (Table) 04/29/23 Range/Units 06:20 Triglycerides 200.00 H (0.00-149.00) mg/dL Cholesterol 214.00 H (0.00-200.00) mg/dL Assessment and Plan Assessment: 1. Chest pain Patient will be admitted to telemetry with plans to monitor EKG and trend troponin - We will continue with aspirin and statin therapy Recommending 2-D echo -- Cardiology is consulted 2. Transaminitis; possibly related to statin use; we will monitor liver enzymes with plans for further workup if liver enzymes continue to trend up 2. Hypertension; losartanHCTZ 5012 0.5 mg daily; atenolol 50 mg daily 3. Hyperlipidemia; continue with home dose of pravastatin 4. Hypothyroidism; Levothyroxine 100 MCG daily 5. GERD/gastritis; omeprazole 20 mg daily DVT prophylaxis; SCDs CODE STATUS; full code
--- NOTE | 2023-04-30 13:26 | PN ---
PROGRESS NOTE DISCUSSION: Suma is a 72-year-old lady, who was admitted to hospital with chest pain, ruled out for myocardial infarction, is scheduled for a stress test tomorrow. This morning, she is doing well and is free of symptoms, had an echocardiogram that showed normal LV systolic function. PHYSICAL EXAMINATION: GENERAL: The patient is comfortable at rest. VITAL SIGNS: Stable. NECK: There is no jugular venous distention. Carotid upstroke is normal. There is no bruit. CHEST: Reveals good air entry bilaterally. HEART: Reveals first and second heart sounds. No gallop. No murmur. ABDOMEN: Soft and nontender. EXTREMITIES: Do not reveal any edema. Peripheral pulses are felt. LABORATORY DATA: Labs show a potassium of 4.1, creatinine is 0.8, hemoglobin is 13.8. ASSESSMENT: Precordial chest pain, rule out ischemia. PLAN: The patient will undergo a stress echo tomorrow. If this is abnormal, she will undergo a cardiac catheterization. If not, she will be discharged home. MMODL / IJN: [id number] /
[2023-04-30] MEDS: PANTOPRAZOLE 40 MG TABLET PO SCH (20:43)
--- NOTE | 2023-04-30 21:03 | P.PN ---
Subjective Progress Note Date: 04/30/23 72-year-old female with past medical history significant for high blood pressure and high cholesterol. Her patient states she started having significant chest heaviness lasted about half hour patient states she's very diaphoretic mildly nauseated and a little bit of shortness of breath per patient denied radiation of the pain. Patient states the pain subsided after about 30 minutes and hasn't returned per patient went to an urgent care and they sent her to the emergency department. Patient denies lightheadedness dizziness per patient denies any headache patient denies numbness weakness. Patient denies any previous heart history. Patient denies any smoking. Patient denies any abdominal pain patient denies any vomiting or diarrhea. Patient denies any back pain. His any calf tenderness or leg swelling EKG reveals sinus mechanism with no signs of acute ischemia Chest xray no acute cardiopulmonary disease/process Laboratory data: WBC 8.1. Hemoglobin 13.6. Platelet count 238. Sodium 136. Potassium 3.8. BUN 17. Creatinine 0.71. AST 143. ALT 136. Troponin negative 3. Current home cardiac medications include atenolol 50 mg daily, pravastatin 40 mg Monday, and losartan-hydrochlorothiazide 50-12.5mg daily 04/30/2023 Patient is seen and evaluated sitting up in bed; no further complaints of chest pain Vital signs are reviewed and remained stable Lab review shows WBC of 7.6, hemoglobin of 13.8 and platelet count of 248, sodium 142, potassium 4.1,/creatinine of 16.2/0.8 -- Patient has been evaluated by cardiology with plans to move forward with dobutamine stress echocardiogram Objective - Vital Signs Vital signs: Vital Signs Temp 97.3 F L 04/30/23 07:00 Pulse 77 04/30/23 07:00 Resp 16 04/30/23 07:00 BP 137/79 04/30/23 07:00 Pulse Ox 96 04/30/23 07:00 FiO2 Intake & Output 04/29/23 04/30/23 04/30/23 18:59 06:59 18:59 Other: # Voids 2 2 - Exam GENERAL: Well-developed in no acute distress. HEENT: Head is normocephalic. Pupils are equal, round. Sclerae anicteric. Mucous membranes of the mouth are moist. Neck supple. No JVD or thyromegaly LUNGS: Respirations even and unlabored. Lungs essentially clear to auscultation bilaterally. HEART: Regular rate and rhythm. S1 and S2 heard. ABDOMEN: Soft. Nondistended. Nontender. EXTREMITIES: Normal range of motion. No clubbing or cyanosis. Peripheral pulses intact. No lower extremity edema NEUROLOGIC: Awake and alert. Oriented x 3. - Labs CBC & Chem 7: 04/30/23 05:46 04/30/23 05:46 Labs: Abnormal Lab Results - Last 24 Hours (Table) 04/30/23 Range/Units 05:46 BUN/Creatinine Ratio 20.25 H (12.00-20.00) Ratio Glucose 129 H (70-110) mg/dL Assessment and Plan Assessment: 1. Chest pain Patient will be admitted to telemetry with plans to monitor EKG and trend troponin - We will continue with aspirin and statin therapy Recommending 2-D echo -- Cardiology is consulted 2. Transaminitis; possibly related to statin use; we will monitor liver enzymes with plans for further workup if liver enzymes continue to trend up 2. Hypertension; losartanHCTZ 5012 0.5 mg daily; atenolol 50 mg daily 3. Hyperlipidemia; continue with home dose of pravastatin 4. Hypothyroidism; Levothyroxine 100 MCG daily 5. GERD/gastritis; omeprazole 20 mg daily DVT prophylaxis; SCDs CODE STATUS; full code
[2023-05-01] MEDS: atenoloL 50 MG TAB PO SCH (08:35)
[2023-05-01] MEDS: ASPIRIN 81 MG PO SCH (08:35)
[2023-05-01] MEDS: VENLAFAXINE HCL ER 75 MG CAP PO SCH (08:35)
[2023-05-01] MEDS: LOSARTAN-HCTZ 50-12.5 MG 1 EACH TAB PO SCH (08:35)
[2023-05-01] MEDS: LEVOTHYROXINE 100 MCG TAB PO SCH (08:35)
[2023-05-01] MEDS: PRAVASTATIN SODIUM 40 MG TAB PO SCH (08:35)
[2023-05-01 08:52] VITALS: BP 123/71; PULSE 79; RESP 16; TEMP 98.3
--- NOTE | 2023-05-01 10:20 | P.PN ---
Subjective Progress Note Date: 05/01/23 History of present illness: This is a 72-year-old female presented to the hospital to rule out myocardial infarction scheduled for a stress test today. Patient is doing well today. No chest pain, shortness of breath. Physical examination: Gen: This is a 72-year-old female. She is resting in a chair and appears to be comfortable VS: reviewed HEENT: Head is atraumatic, normocephalic. Pupils equal, round. Sclerae is anicteric. LUNGS: Clear to auscultation. No wheezes or rhonchi. No intercostal retractions. HEART: Regular rate and rhythm. No murmur. EXTREMITIES: No pedal edema. No calf tenderness. NEUROLOGICAL: Patient is awake, alert and oriented x3. Assessment: Precordial chest pain, acute coronary syndrome ruled out Plan: Continue current cardiac medications Stress echocardiogram today. If this is abnormal, patient will undergo cardiac catheterization. If the stress test is normal, patient may be discharged home. Nurse practitioner note has been reviewed, I agree with documented findings and plan of care. Patient was seen and examined. Objective - Vital Signs Vital signs: Vital Signs Temp 98.2 F 05/01/23 02:21 Pulse 53 L 05/01/23 02:21 Resp 15 05/01/23 02:21 BP 121/62 05/01/23 02:21 Pulse Ox 96 05/01/23 02:21 FiO2 Intake & Output 04/30/23 05/01/23 05/01/23 18:59 06:59 18:59 Other: # Voids 2 1 # Bowel Movements 1 - Labs CBC & Chem 7: 04/30/23 05:46 04/30/23 05:46 Labs: Abnormal Lab Results - Last 24 Hours (Table) 04/30/23 Range/Units 05:46 BUN/Creatinine Ratio 20.25 H (12.00-20.00) Ratio Glucose 129 H (70-110) mg/dL
--- NOTE | 2023-05-01 11:30 | CA ---
Stress Echo Report Suma Tay Age: 72 Gender: F : 1950 Exam Date: 05/01/2023 10:49 Exam Location: [facility] Ht (in): 63 Wt (lb): 180 Ordering Physician: Emily Nolasco Referring Physician: [id number] Note Specialist: Ronda Darnell RDCS Technologist Procedure CPT: Indication: CP ICD-9 Codes: Rhythm: Patient History: Atypical angina Cardiac Medications: Medications in past 24 hours: Contrast: Stress Results Protocol: Vinh Total dose(mL): Exercise Duration (min:sec): 7:[address] Depression (mm): Angina Score: Clark Score: METS: 9.3 Resting HR: 78 Resting BP: 122 / 71 Peak HR: 130 Peak BP: 178 / 82 Max Predicted HR: 149 87 % Max Predicted HR Target HR: 127 Double Product: 20522 Stress Summary: The patient's target heart rate was achieved BP Response: Normal Reason for Termination: MAX EXERTION/TARGET HR Cardiac Symptoms: FATIGUE ECG Analysis Resting ECG: Stress ECG: Arrhythmia: Echo Analysis Resting Echo: Peak Echo Analysis: MEASUREMENTS (Male/Female) Normal Values CONCLUSIONS Baseline EKG revealed normal sinus rhythm without significant ST-T changes. Patient walked on a standard Vinh protocol for 7 minutes 42 seconds and achieved a maximum heart rate of 129 bpm which is 85% of predicted maximal. She developed fatigue and shortness of breath. There was no angina. There was a lot of artifact on the EKG but no significant ST segment changes. By EKG criteria this is a negative stress test with fair exercise capacity. No evidence of ischemia by EKG criteria Baseline echo images revealed normal wall motion wall thickening of all segments. At peak exercise there was good augmentation of the front wall motion wall thickening of all segments suggesting that that is no evidence of stress-induced ischemia on this stress echocardiogram Final impression: #1 normal stress test by EKG criteria maximum heart rate 1 28 bpm no EKG changes to suggest ischemia and no angina #2 normal stress echocardiogram without evidence of ischemia Dr. Taiwo Yarbrough MD (Electronically Signed) Final Date: 01 May 2023 11:30
--- NOTE | 2023-05-02 07:02 | P.DS ---
Providers Date of admission: 05/01/23 09:20 Expected date of discharge: 05/01/23 Attending physician: Ramona Choi Consults: 04/28/23 14:10 Consult Physician Urgent Consulting Provider: [facility] Consult Reason/Comments: Chest pain Do you want consulting provider notified?: Yes Primary care physician: Taqueria Pelletier [facility] Course: Final diagnosis -Chest pain, ruled out ACS, stress test was negative for reducible ischemia -Transaminitis; possibly related to statin use -Hypertension -Hyperlipidemia -Hypothyroidism -Obesity with a BMI of 31.9 -GERD/gastritis -DVT prophylaxis -GI prophylaxis -Full code Discharge disposition Patient is being discharged in a stable condition with guarded prognosis to home. Patient will follow-up with Dr. Marin Pelletier in the outpatient setting upon discharge. Patient is to continue with current medications and outpatient follow-up with cardiology as scheduled. Total time taken is greater than 35 minutes. Hospital course This is a 72-year-old female who was recently admitted with brief episode of chest pain and being closely monitored. Patient initially went to urgent care was sent here for further evaluation was by cardiology maintained on telemetry monitoring recommending stress test. Stress test was performed today which was negative for reducible ischemia and has been cleared by cardiology Dr. Yarbrough. Patient instructed to follow-up with primary care provider along with cardiology outpatient. Continue on current medications as mentioned below. Please refer to cardiology notes for further HPI. Currently no reports of chest pain, shortness of breath, or palpitations. Patient is afebrile. No reports of nausea or vomiting and patient is tolerating diet. Patient will be discharged home today. Physical exam: Gen: This is a 72-year-old female who is awake, alert and oriented 3, well- developed, well-nourished, obese HEENT: Head is atraumatic, normocephalic. Pupils equal, round. Sclerae is anicteric. NECK: Supple. No JVD. No lymphadenopathy. No thyromegaly. LUNGS: Clear to auscultation. No wheezes or rhonchi. No intercostal retractions. HEART: S1, S2 are muffled ABDOMEN: Soft. Obese. Bowel sounds are present. No masses. No tenderness. EXTREMITIES: No pedal edema. No calf tenderness. NEUROLOGICAL: Patient is awake, alert and oriented x3. Cranial nerves 2 through 12 are grossly intact. Please refer to medication reconciliation sheet for a list of medications. The impression and plan of care has been dictated by Lakia Marks, Nurse Practitioner as directed. Dr. Jimbo MD I have performed a history and examination and MDM of this patient, discussed the same with the dictator, and agree with the dictator's assessment and plan as written ,documented as a scribe. Based on total visit time, I have performed more than 50% of the visit. Patient Condition at Discharge: Stable Plan - Discharge Summary Discharge Rx Participant: No New Discharge Prescriptions: New Nitroglycerin Sl Tabs [Nitrostat] 0.4 mg SUBLINGUAL Q5M PRN #20 tab PRN Reason: Chest Pain Aspirin 81 mg PO DAILY #30 tab Continue Losartan-Hctz 50-12.5 mg [Hyzaar 50-12.5] 1 tab PO DAILY atenoloL [Tenormin] 50 mg PO DAILY Pravastatin Sodium [Pravachol] 40 mg PO MOWEFR Venlafaxine HCl [Effexor XR] 75 mg PO DAILY Omeprazole [PriLOSEC] 20 mg PO HS Levothyroxine Sodium [Synthroid] 100 mcg PO DAILY Discharge Medication List Levothyroxine Sodium [Synthroid] 100 mcg PO DAILY 04/28/23 [History] Losartan-Hctz 50-12.5 mg [Hyzaar 50-12.5] 1 tab PO DAILY 04/28/23 [History] Omeprazole [PriLOSEC] 20 mg PO HS 04/28/23 [History] Pravastatin Sodium [Pravachol] 40 mg PO MOWEFR 04/28/23 [History] Venlafaxine HCl [Effexor XR] 75 mg PO DAILY 04/28/23 [History] atenoloL [Tenormin] 50 mg PO DAILY 04/28/23 [History] Aspirin 81 mg PO DAILY #30 tab 05/01/23 [Rx] Nitroglycerin Sl Tabs [Nitrostat] 0.4 mg SUBLINGUAL Q5M PRN #20 tab 05/01/23 [Rx] Follow up Appointment(s)/Referral(s): Taqueria Pelletier MD [Primary Care Provider] - 1-2 days Activity/Diet/Wound Care/Special Instructions: Activity Limited until follow-up Follow-up primary care provider on discharge Follow cardiology outpatient and continue taking medications as prescribed Continue heart healthy diet
== END 2023-05-01 13:58 | disposition home or self-care (01) | DRG 313 ==
LOC: EC 10:47 → 6NMEDSUR 14:10 → OBSVTOIN 05-01 09:20
PROVIDERS: ADMIT Hospitalist; ATTEND Hospitalist
DX: R07.89 Other chest pain (principal); E66.9 Obesity, unspecified; I10 Essential (primary) hypertension; K29.70 Gastritis, unspecified, without bleeding; T46.6X5A Adverse effect of antihyperlipidemic and antiarteriosclerotic drugs, initial encounter; I07.1 Rheumatic tricuspid insufficiency; Z68.31 Body mass index [BMI] 31.0-31.9, adult; E03.9 Hypothyroidism, unspecified; Z79.890 Hormone replacement therapy; R74.01 Elevation of levels of liver transaminase levels; X58.XXXA Exposure to other specified factors, initial encounter; E78.00 Pure hypercholesterolemia, unspecified; K21.9 Gastro-esophageal reflux disease without esophagitis; Z79.899 Other long term (current) drug therapy; Z88.5 Allergy status to narcotic agent; Z88.8 Allergy status to other drugs, medicaments and biological substances; Z88.2 Allergy status to sulfonamides; Z88.1 Allergy status to other antibiotic agents
CPT/HCPCS: 36415; 71046; 80048; 80053; 80061; 83735; 84484; 85025; 85610; 85730; 93005; 93306; 93351; 94760

== ENCOUNTER → 2023-05-23 | Outpatient (CLI) | payer MEDICARE, BC ==
--- NOTE | 2023-05-25 07:39 | MM ---
Reason for Exam: Screening (asymptomatic). Last mammogram was performed 1 year(s) and 1 month(s) ago. Patient History: Menarche at age 14. First Full-Term at age 24. Postmenopausal. Patient has history of breast feeding. Hormonal Contraceptives for 1 year, 6 months. Paternal aunt had breast cancer, age 82. Risk Values: Zoe 5 year model risk: 1.6%. NCI Lifetime model risk: 4.3%. Prior Study Comparison: 04/06/2020 Bilateral Screening Mammogram, [facility]. 04/14/2021 Bilateral Screening Mammogram, [facility]. 04/20/2022 Bilateral MG 3D screening mammo w/cad, [facility]. Tissue Density: There are scattered fibroglandular densities. Findings: Analyzed By CAD. There is no suspicious group of microcalcifications or new suspicious mass in either breast. Stable chronic nodularity within the right breast. Benign vascular calcifications within the right breast. Overall Assessment: Benign, BI-RAD 2 Management: Screening Mammogram of both breasts in 1 year. A clinical breast exam by your physician is recommended on an annual basis and results should be correlated with mammographic findings. Note on Zoe scores and lifetime risk: 1. A Zoe score greater than 3% is considered moderate risk. If this is the case, consider specialist referral to assess eligibility for a risk reducing agent. If overall lifetime risk for the development of breast cancer is 20% or higher, the patient may qualify for future screening with alternating mammogram and breast MRI. Electronically signed and approved by: Gabriel Dozier D.O.
== END | disposition home or self-care (01) ==
LOC: RADMAMWWP 09:47
PROVIDERS: ATTEND Obstetrics & Gynecology
DX: Z12.31 Encounter for screening mammogram for malignant neoplasm of breast (principal); Z78.0 Asymptomatic menopausal state; Z80.3 Family history of malignant neoplasm of breast
CPT/HCPCS: 77063; 77067

== ENCOUNTER → 2024-06-11 | Outpatient (CLI) | payer MEDICARE, BC ==
--- NOTE | 2024-06-13 11:02 | MM ---
Reason for Exam: Screening (asymptomatic). Last mammogram was performed 1 year(s) and 1 month(s) ago. Patient History: Menarche at age 14. First Full-Term at age 24. Postmenopausal. Patient has history of breast feeding. Hormonal Contraceptives for 1 year, 6 months. Paternal aunt had breast cancer, age 82. Risk Values: Zoe 5 year model risk: 1.6%. NCI Lifetime model risk: 3.9%. Prior Study Comparison: 04/14/2021 Bilateral Screening Mammogram, [facility]. 04/20/2022 Bilateral MG 3D screening mammo w/cad, [facility]. 05/23/2023 Bilateral MG 3D screening mammo w/cad, [facility]. Tissue Density: The breasts are almost entirely fatty. Findings: Analyzed By CAD. Right breast: There is no suspicious group of microcalcifications or new suspicious mass. Left breast: There is no suspicious group of microcalcifications or new suspicious mass. Overall Assessment: Negative, BI-RAD 1 Management: Screening Mammogram of both breasts in [address] [facility] will attempt to contact patient to return for supplemental views and ultrasound if indicated. Patient should continue monthly self-breast exams. A clinical breast exam by your physician is recommended on an annual basis. This exam should not preclude additional follow-up of suspicious palpable abnormalities. Note on Zoe scores and lifetime risk: 1. A Zoe score greater than 3% is considered moderate risk. If this is the case, consider specialist referral to assess eligibility for a risk reducing agent. 2. If overall lifetime risk for the development of breast cancer is 20% or higher, the patient may qualify for future screening with alternating mammogram and breast MRI. [facility], , 06/13/2024 10:59 AM. Electronically signed and approved by: Grover Issa DO
== END | disposition home or self-care (01) ==
LOC: RADMAMWWP 12:46
PROVIDERS: ATTEND Family Medicine
DX: Z12.31 Encounter for screening mammogram for malignant neoplasm of breast
CPT/HCPCS: 77063; 77067

== ENCOUNTER 2024-09-05 13:51 | Observation (INO) | payer MEDICARE, BC ==
--- NOTE | 2024-09-05 15:34 | ED ---
Weakness HPI - General Chief complaint: Weakness Stated complaint: L leg issue Time Seen by Provider: 09/05/24 14:48 Source: patient, RN notes reviewed, old records reviewed Mode of arrival: wheelchair Limitations: no limitations - History of Present Illness Initial comments: This is a 74 female she presents today for evaluation of left leg weakness this has been intermittent issue of recent, patient saw her primary care who thought she may have had TIA versus CVA. Patient symptoms continue to relapse and recur. Patient coming in for left leg weakness currently without significant current deficit -: days(s) Location: LLE Severity: moderate Severity scale (1-10): 7 Quality: tingling, numbness Consistency: intermittent, now resolved Worsens with: none Associated Symptoms: denies other symptoms - Related Data Home Medications Medication Instructions Recorded Confirmed Levothyroxine Sodium [Synthroid] 100 mcg PO DAILY 04/28/23 04/28/23 Losartan-Hctz 50-12.5 mg [Hyzaar 1 tab PO DAILY 04/28/23 04/28/23 50-12.5] Omeprazole [PriLOSEC] 20 mg PO HS 04/28/23 04/28/23 Pravastatin Sodium [Pravachol] 40 mg PO MOWEFR 04/28/23 04/28/23 Venlafaxine HCl [Effexor XR] 75 mg PO DAILY 04/28/23 04/28/23 atenoloL [Tenormin] 50 mg PO DAILY 04/28/23 04/28/23 Previous Rx's Medication Instructions Recorded Aspirin 81 mg PO DAILY #30 tab 05/01/23 Nitroglycerin Sl Tabs [Nitrostat] 0.4 mg SUBLINGUAL Q5M PRN #20 tab 05/01/23 Allergies Allergy/AdvReac Type Severity Reaction Status Date / Time hydrocortisone Allergy red face & Verified 04/28/23 13:37 [From Cortizone-10] chest Sulfa (Sulfonamide Allergy Rash/Hives Verified 04/28/23 13:37 Antibiotics) sulfamethoxazole Allergy Rash/Hives Verified 04/28/23 13:37 [From Bactrim] trimethoprim [From Bactrim] Allergy Rash/Hives Verified 04/28/23 13:37 Review of Systems ROS Statement: Those systems with pertinent positive or pertinent negative responses have been documented in the HPI. ROS Other: All systems not noted in ROS Statement are negative. Past Medical History Past Medical History: GERD/Reflux, Hypertension, Thyroid Disorder Additional Past Medical History / Comment(s): ARDS History of Any Multi-Drug Resistant Organisms: None Reported Additional Past Surgical History / Comment(s): thyroidectomy, tracheotomy Past Anesthesia/Blood Transfusion Reactions: No Reported Reaction Past Psychological History: No Psychological Hx Reported Smoking Status: Never smoker Past Alcohol Use History: None Reported Past Drug Use History: None Reported General Exam - General Exam Comments Initial Comments: NIH of 0, intermittent left leg weakness Limitations: no limitations General appearance: alert, in no apparent distress Head exam: Present: atraumatic, normocephalic, normal inspection Eye exam: Present: normal appearance, PERRL, EOMI. Absent: scleral icterus, conjunctival injection, periorbital swelling ENT exam: Present: normal exam, mucous membranes moist Neck exam: Present: normal inspection. Absent: tenderness, meningismus, lymphadenopathy Respiratory exam: Present: normal lung sounds bilaterally. Absent: respiratory distress, wheezes, rales, rhonchi, stridor Cardiovascular Exam: Present: regular rate, normal rhythm, normal heart sounds. Absent: systolic murmur, diastolic murmur, rubs, gallop, clicks GI/Abdominal exam: Present: soft, normal bowel sounds. Absent: distended, tenderness, guarding, rebound, rigid Extremities exam: Present: normal inspection, full ROM, normal capillary refill. Absent: tenderness, pedal edema, joint swelling, calf tenderness Back exam: Present: normal inspection Neurological exam: Present: alert, oriented X3, CN II-XII intact Psychiatric exam: Present: normal affect, normal mood Skin exam: Present: warm, dry, intact, normal color. Absent: rash Course Vital Signs 09/05/24 09/05/24 09/05/24 13:53 15:09 17:00 Temperature 98.7 F Pulse Rate 78 67 Respiratory 16 18 18 Rate Blood Pressure 143/73 99/60 O2 Sat by Pulse 9 L 95 Oximetry 09/05/24 18:00 Temperature Pulse Rate 67 Respiratory 18 Rate Blood Pressure 128/71 O2 Sat by Pulse 95 Oximetry - Reevaluation(s) Reevaluation #1: 09/05/24 18:17 Medical records reviewed Reevaluation #2: 09/05/24 18:17 Patient symptoms remain resolved Reevaluation #3: 09/05/24 18:17 Patient informed of results and questions answered Reevaluation #4: Was pt. sent in by a medical professional or institution (ANGEL LUIS Garcia, [employer], urgent care, hospital, or usp...) When possible be specific @ -no Did you speak to anyone other than the patient for history (EMS, parent, family, police, friend...)? What history was obtained from this source @ -no Did you review nursing and triage notes (agree or disagree)? Why? @ -agree Are old charts reviewed (outside hosp., previous admission, EMS record, old EKG, old radiological studies, urgent care reports/EKG's, usp records)? Report findings @ -yes Differential Diagnosis (chest pain, altered mental status, abdominal pain women, abdominal pain men, vaginal bleeding, weakness, fever, dyspnea, syncope, headache, dizziness, GI bleed, back pain, seizure, CVA, palpatations, mental health, musculoskeletal)? @ -prior EKG interpreted by me (3pts min.). @ -yes X-rays interpreted by me (1pt min.). @ -yes negative for acute disease CT interpreted by me (1pt min.). @ -no U/S interpreted by me (1pt. min.). @ -no What testing was considered but not performed or refused? (CT, X-rays, U/S, labs)? Why? @ -none What meds were considered but not given or refused? Why? @ -none Did you discuss the management of the patient with other professionals (professionals i.e. ANGEL LUIS Garcia, [employer]SULTANT, lab, RT, psych nurse, social service director, fly worker, teacher, business enterprise officer, case coordinator)? Give summary @ -no Was smoking cessation discussed for >3mins.? @ -no Was critical care preformed (if so, how long)? @ -no Were there social determinants of health that impacted care today? How? (Homelessness, low income, unemployed, alcoholism, drug addiction, transportation, low edu. Level, literacy, decrease access to med. care, skilled nursing, rehab)? @ -none Was there de-escalation of care discussed even if they declined (Discuss DNR or withdrawal of care, Hospice)? DNR status @ -no What co-morbidities impacted this encounter? (DM, HTN, Smoking, COPD, CAD, Cancer, CVA, ARF, Chemo, Hep., AIDS, mental health diagnosis, sleep apnea, morbid obesity)? @ -none Was patient admitted / discharged? Hospital course, mention meds given and route, prescriptions, significant lab abnormalities, going to OR and other pertinent info. @ - Undiagnosed new problem with uncertain prognosis? @ -no Drug Therapy requiring intensive monitoring for toxicity (Heparin, Nitro, Insulin, Cardizem)? @ -no Were any procedures done? @ -no Diagnosis/symptom? @ - Acute, or Chronic, or Acute on Chronic? @ -Acute Uncomplicated (without systemic symptoms) or Complicated (systemic symptoms)? @ -Complicated Side effects of treatment? @ -no Exacerbation, Progression, or Severe Exacerbation? @ -exacerbation Poses a threat to life or bodily function? How? (Chest pain, USA, NC, pneumonia, PE, COPD, DKA, ARF, appy, cholecystitis, CVA, Diverticulitis, Homicidal, Suicidal, threat to staff... and all critical care pts) @ -yes Reevaluation #5: Differential CVA Ischemic stroke, hemorrhagic stroke, brain tumor, atypical migraine, Wernicke's encephalopathy, seizure, multiple sclerosis, meningitis, encephalitis, hypoglycemia, Guillain-Taveras, electrolytes disturbance, myasthenia gravis.... This is not meant to be an all-inclusive list - Consultations Consultation #1: Spoke with [facility] who admits this patient EKG Findings - EKG Comments: EKG Findings:: EKG is sinus bradycardia 58 [place] 167 QRS 109 QTc 428 - EKG Results: EKG: interpreted by KARINA Medical Decision Making - Medical Decision Making 74 female with left leg weakness recurrent. Patient has severe left lower extremity weakness CT brain positive for CVA, symptoms are suggestive of TIA and patient will admit for neurology evaluation - Lab Data Result diagrams: 09/05/24 15:53 09/05/24 15:53 Lab Results 09/05/24 09/05/24 09/05/24 Range/Units 15:53 15:53 15:53 WBC 9.5 (3.8-10.6) k/uL RBC 4.68 (3.80-5.40) m/uL Hgb 14.0 (11.4-16.0) gm/dL Hct 43.3 (34.0-46.0) % MCV 92.6 (80.0-100.0) fL MCH 29.9 (25.0-35.0) pg MCHC 32.3 (31.0-37.0) g/dL RDW 13.1 (11.5-15.5) % Plt Count 265 (150-450) k/uL MPV 7.2 Neutrophils % 61 % Lymphocytes % 30 % Monocytes % 5 % Eosinophils % 2 % Basophils % 1 % Neutrophils # 5.7 (1.3-7.7) k/uL Lymphocytes # 2.8 (1.0-4.8) k/uL Monocytes # 0.5 (0-1.0) k/uL Eosinophils # 0.2 (0-0.7) k/uL Basophils # 0.1 (0-0.2) k/uL PT 10.5 (10.0-12.5) sec INR 0.9 (<1.2) APTT 29.0 (22.0-30.0) sec Sodium 138 (137-145) mmol/L Potassium 3.5 (3.5-5.1) mmol/L Chloride 105 (98-107) mmol/L Carbon Dioxide 28 (22-30) mmol/L Anion Gap 5 mmol/L BUN 18 H (7-17) mg/dL Creatinine 0.79 (0.52-1.04) mg/dL Est GFR (CKD-EPI)AfAm 87 (>60 ml/min/1.73 sqM) Est GFR (CKD-EPI)NonAf 75 (>60 ml/min/1.73 sqM) Glucose 145 H (74-99) mg/dL Plasma Lactic Acid Sascha (0.7-2.0) mmol/L Calcium 9.6 (8.4-10.2) mg/dL Phosphorus 3.7 (2.5-4.5) mg/dL Magnesium 1.8 (1.6-2.3) mg/dL Total Bilirubin 1.6 H (0.2-1.3) mg/dL AST 28 (14-36) U/L ALT 23 (4-34) U/L Alkaline Phosphatase 79 (38-126) U/L Troponin I (0.000-0.034) ng/mL Total Protein 7.2 (6.3-8.2) g/dL Albumin 4.6 (3.5-5.0) g/dL Urine Color Urine Appearance (Clear) Urine pH (5.0-8.0) Ur Specific [place] (1.001-1.035) Urine Protein (Negative) Urine Glucose (UA) (Negative) Urine Ketones (Negative) Urine Blood (Negative) Urine Nitrite (Negative) Urine Bilirubin (Negative) Urine Urobilinogen (<2.0) mg/dL Ur Leukocyte Esterase (Negative) Urine WBC (0-5) /hpf Ur Squamous Epith Cells (0-4) /hpf 09/05/24 09/05/24 09/05/24 Range/Units 15:53 15:53 16:06 WBC (3.8-10.6) k/uL RBC (3.80-5.40) m/uL Hgb (11.4-16.0) gm/dL Hct (34.0-46.0) % MCV (80.0-100.0) fL MCH (25.0-35.0) pg MCHC (31.0-37.0) g/dL RDW (11.5-15.5) % Plt Count (150-450) k/uL MPV Neutrophils % % Lymphocytes % % Monocytes % % Eosinophils % % Basophils % % Neutrophils # (1.3-7.7) k/uL Lymphocytes # (1.0-4.8) k/uL Monocytes # (0-1.0) k/uL Eosinophils # (0-0.7) k/uL Basophils # (0-0.2) k/uL PT (10.0-12.5) sec INR (<1.2) APTT (22.0-30.0) sec Sodium (137-145) mmol/L Potassium (3.5-5.1) mmol/L Chloride (98-107) mmol/L Carbon Dioxide (22-30) mmol/L Anion Gap mmol/L BUN (7-17) mg/dL Creatinine (0.52-1.04) mg/dL Est GFR (CKD-EPI)AfAm (>60 ml/min/1.73 sqM) Est GFR (CKD-EPI)NonAf (>60 ml/min/1.73 sqM) Glucose (74-99) mg/dL Plasma Lactic Acid Sascha 1.5 (0.7-2.0) mmol/L Calcium (8.4-10.2) mg/dL Phosphorus (2.5-4.5) mg/dL Magnesium (1.6-2.3) mg/dL Total Bilirubin (0.2-1.3) mg/dL AST (14-36) U/L ALT (4-34) U/L Alkaline Phosphatase (38-126) U/L Troponin I <0.012 (0.000-0.034) ng/mL Total Protein (6.3-8.2) g/dL Albumin (3.5-5.0) g/dL Urine Color Light Yellow Urine Appearance Clear (Clear) Urine pH 6.0 (5.0-8.0) Ur Specific [place] 1.018 (1.001-1.035) Urine Protein Negative (Negative) Urine Glucose (UA) Negative (Negative) Urine Ketones Negative (Negative) Urine Blood Negative (Negative) Urine Nitrite Negative (Negative) Urine Bilirubin Negative (Negative) Urine Urobilinogen <2.0 (<2.0) mg/dL Ur Leukocyte Esterase Small H (Negative) Urine WBC 4 (0-5) /hpf Ur Squamous Epith Cells <1 (0-4) /hpf - Radiology Data Radiology results: report reviewed (CT brain shows likely subacute CVA, CT angio negative), image reviewed Disposition Clinical Impression: TIA (transient ischemic attack), CVA (cerebral vascular accident) Disposition: ADMITTED IP TO THIS [facility] Condition: Serious Is patient prescribed a controlled substance at d/c from ED?: No Referrals: Taqueria Pelletier MD [Primary Care Provider] - 1-2 days Time of Disposition: 18:10
[2024-09-05] MEDS: SODIUM CHLORIDE 0.9% 1,000 ML IV STA (15:55)
[2024-09-05 16:05] LABS: Basophils # (A) 0.1 k/uL (0-0.2); Basophils % (A) 1 %; Eosinophils # (A) 0.2 k/uL (0-0.7); Eosinophils % (A) 2 %; HCT 43.3 % (34.0-46.0); Lymphocytes # (A) 2.8 k/uL (1.0-4.8); Lymphocytes % (A) 30 %; MCH 29.9 pg (25.0-35.0); MCHC 32.3 g/dL (31.0-37.0); MCV 92.6 fL (80.0-100.0); Mean Platelet Volume 7.2; Monocytes # (A) 0.5 k/uL (0-1.0); Monocytes % (A) 5 %; Neutrophils # (A) 5.7 k/uL (1.3-7.7); Neutrophils % (A) 61 %; Platelet Count 265 k/uL (150-450); RBC 4.68 m/uL (3.80-5.40); RDW 13.1 % (11.5-15.5); WBC 9.5 k/uL (3.8-10.6)
--- NOTE | 2024-09-05 16:07 | XR ---
EXAMINATION TYPE: XR chest 2V DATE OF EXAM: 09/05/2024 3:46 PM COMPARISON: Chest radiographs from 04/28/2023 CLINICAL INDICATION: Female, 74 years old with history of Weakness; [facility] TECHNIQUE: XR chest 2V Frontal and lateral views of the chest. FINDINGS: Lungs/Pleura: There is no evidence of pleural effusion, focal consolidation, or pneumothorax. Pulmonary vascularity: Unremarkable. Heart/mediastinum: Cardiomediastinal silhouette is unremarkable. Musculoskeletal: No acute osseous pathology. IMPRESSION: No acute cardiopulmonary disease/process. [facility], , 09/05/2024 4:05 PM
[2024-09-05 16:16] LABS: INR 0.9 (<1.2); Prothrombin Time 10.5 sec (10.0-12.5)
[2024-09-05 16:20] LABS: ALT 23 U/L (4-34); AST 28 U/L (14-36); African American GFR (CKD) 87 (>60 ml/min/1.73 sqM); Albumin 4.6 g/dL (3.5-5.0); Alkaline Phosphatase 79 U/L (38-126); Anion Gap 5 mmol/L; Blood Urea Nitrogen 18 mg/dL (7-17); Calcium 9.6 mg/dL (8.4-10.2); Carbon Dioxide 28 mmol/L (22-30); Chloride 105 mmol/L (98-107); Glucose 145 mg/dL (74-99); Magnesium 1.8 mg/dL (1.6-2.3); Non-African American GFR(CKD) 75 (>60 ml/min/1.73 sqM); Phosphorus 3.7 mg/dL (2.5-4.5); Potassium 3.5 mmol/L (3.5-5.1); Sodium 138 mmol/L (137-145); Total Bilirubin 1.6 mg/dL (0.2-1.3); Total Protein 7.2 g/dL (6.3-8.2)
[2024-09-05 16:24] LABS: Appearance,Urine Clear (Clear); Bilirubin,Urine Negative (Negative); Blood,Urine Negative (Negative); Color,Urine Light Yellow; Glucose,Urine (UA) Negative (Negative); Ketones,Urine Negative (Negative); Leukocyte Esterase,Urine Small (Negative); Nitrite,Urine Negative (Negative); Protein,Urine Negative (Negative); Specific Gravity,Urine 1.018 (1.001-1.035); Squamous Epithelial Cell,Urine <1 /hpf (0-4); Urobilinogen,Urine <2.0 mg/dL (<2.0); WBC,Urine 4 /hpf (0-5)
--- NOTE | 2024-09-05 17:42 | CT ---
EXAMINATION TYPE: CT brain wo con DATE OF EXAM: 09/05/2024 5:26 PM COMPARISON: None. CLINICAL INDICATION: Female, 74 years old with history of cva, rt leg weakness TECHNIQUE: Brain: Axial CT images of the brain were obtained with coronal and sagittal reformats created and rev iewed. Contrast used: None. Oral contrast used: None. CT DLP: 1092 mGycm, Automated exposure control for dose reduction was used. FINDINGS: Brain: Extra-axial spaces: No abnormal extra-axial fluid collections. Ventricular system: Within normal limits Cerebral parenchyma: Hypodense area near the right caudate nucleus possibly the anterior limb of the internal capsule. Series 201 image 31 No acute intraparenchymal hemorrhage or mass effect. The remai nder of the ochoa-white junctions are well differentiated. Cerebellum: Unremarkable. Mass effect: No evidence of midline shift. Intracranial vasculature: Atherosclerotic calcifications of the intracranial vessels. Soft tissues: Normal. Calvarium/osseous structures: No depressed skull fracture. Paranasal sinuses and mastoid air cells: Mild scattered paranasal sinus disease. Visualized orbits: Bilateral aphakia IMPRESSION: Indeterminate hypodense area near the right caudate nucleus possibly the anterior limb of the interna l capsule. Correlate with MRI to exclude acute/subacute CVA. [facility], , 09/05/2024 5:40 PM
--- NOTE | 2024-09-05 18:06 | CT ---
EXAMINATION TYPE: CT angio head neck DATE OF EXAM: 09/05/2024 5:39 PM COMPARISON: 09/05/2024. CLINICAL INDICATION: Female, 74 years old with history of cva; right leg weakness TECHNIQUE: Axially acquired helical CT angiogram of the head and neck was obtained with contrast. Axi al images are supplemented with 3D reconstructions and MIP images which were post-processed at an in dependent workstation. NASCET criteria used. Contrast used:65ml mL of Isovue 370 with IV Contrast, Oral contrast used: None. CT DLP: 1604 mGycm, Automated exposure control for dose reduction was used. FINDINGS: CTA HEAD: No evidence of acute intracranial hemorrhage, mass effect, or midline shift. The ventricles, sulci, a nd cisterns are unremarkable. Vertebral arteries: The vertebral arteries are patent. Vertebral artery dominance: Codominant Basilar artery: The basilar artery is intact. The basilar artery bifurcation is normal. Internal Carotid arteries: The cervical, petrous, cavernous and supraclinoid segments are normal. ABDIRIZAK: Patent with no evidence of aneurysm. ACOM: Present without evidence of aneurysm. MCA: Patent with no evidence of aneurysm. BREADING MACHINE TENDER: Patent with no evidence of aneurysm. PCOM: Hypoplastic bilaterally. Dural sinuses: Patent. CTA NECK: Right Carotid System: The common carotid artery and external carotid artery are patent. The carotid bifurcation demonstrate s no evidence of hemodynamically significant stenosis. The remaining portions of the internal carotid artery demonstrate normal size without significant narrowing. Left Carotid System: The common carotid artery and external carotid artery are patent. The carotid bifurcation demonstrate s no evidence of hemodynamically significant stenosis. The remaining portions of the internal carotid artery demonstrate normal size without significant narrowing. Vertebral arteries are patent without evidence hemodynamically significant stenosis. There is a three-vessel aortic arch. The origins of the great vessels are patent. No evidence of hemo dynamically significant stenosis. IMPRESSION: 1. No evidence of dissection of the cervical internal carotid arteries or vertebral arteries. 2. No any evidence of significant stenosis at the carotid bifurcations. 3. No evidence of intracranial high-grade stenosis or intracranial aneurysm. [facility], , 09/05/2024 6:03 PM
[2024-09-05] MEDS: ASPIRIN 325 MG TAB PO STA (18:22)
[2024-09-05] MEDS: SODIUM CHLORIDE 0.9% 1,000 ML IV SCH (18:22)
[2024-09-05] MEDS: ATORVASTATIN 80 MG TAB PO SCH (20:19)
[2024-09-06] MEDS: ASPIRIN 325 MG TAB PO SCH (08:47)
[2024-09-06 08:49] LABS: Chol/HDL Ratio 4.95 Ratio; LDL Cholesterol,Calculated 144.1 mg/dL (0.0-131.0)
[2024-09-06] MEDS: CLOPIDOGREL 75 MG TAB PO SCH (10:21)
[2024-09-06] MEDS: HEPARIN SODIUM,PORCINE 5,000 UNIT/ML 1 ML VIAL SQ SCH (10:22)
--- NOTE | 2024-09-06 16:23 | MR ---
EXAMINATION TYPE: MR brain wo con DATE OF EXAM: 09/06/2024 2:07 PM COMPARISON: 09/05/2024.. CLINICAL INDICATION: Female, 74 years old with history of stroke. left leg weakness; PHH, Stroke, le ft leg weakness TECHNIQUE: Multi planar, multi sequence imaging was performed through the brain including: T1, T2, In version recovery, Diffusion weighted imaging, and gradient echo imaging. No gadolinium was given. FINDINGS: The ochoa-white junctions, ventricular system, basal cisterns appear unremarkable. Scattered foci of high T2 signal intensity are seen within the periventricular white matter. Midline structures show n o abnormality. Diffusion-weighted imaging shows no evidence of restricted diffusion. The susceptibili ty weighted images do not reveal any evidence for micro-hemorrhage. The bone marrow signal is within normal limits. Paranasal sinuses and mastoid air cells: No significant paranasal sinus disease. Visualized orbits: Orbital contents are intact. IMPRESSION: 1. No evidence of intracranial mass or acute/subacute infarct. 2. Nonspecific white matter changes, likely secondary to small vessel ischemic disease. [facility], , 09/06/2024 4:21 PM
--- NOTE | 2024-09-06 16:58 | P.HPIM ---
History of Present Illness H&P Date: 09/06/24 History of present illness; Patient is a 74-year-old female with hypertension, hyperlipidemia, hypoth yroidism, GERD who presents with left leg weakness. Patient states symptoms began on Monday with left leg weakness and fall. At that time she also states she had some left arm tingling. Symptoms recurred again yesterday and lasted for 5 to 10 minutes. Patient states she has no other symptoms at this time, no facial droop or slurred speech. She states she has no history of stroke. Currently patient reports absence of chest pain, palpitations, dyspnea, cough, weakness, dizziness, headache, and dysuria. Labs significant for BUN 18, glucose 145, total bilirubin 1.6, UA with leukocyte esterase small. EKG done in the ER independently interpreted showed heart rate of 58, no ST segment elevation or depression seen, no T-wave inversions seen. Chest x-ray done independently interpreted in the ER showed no acute process CT head done independently interpreted showed indeterminate hypodense area in right caudate nucleus, possibly anterior limb of the internal capsule CTA head and neck done independently interpreted showed no significant stenosis, aneurysm or thrombus in the intracranial circulation. Spoke with the ER physician, patient admission was accepted by internal medicine service for treatment. REVIEW OF SYSTEMS: Pertinent positives and negatives noted in HPI. PHYSICAL EXAMINATION: Vitals reviewed GENERAL: No acute distress. Well developed, well nourished. HEENT: Pupils are round and equally reacting to light. EOMI. No scleral icterus. Normocephalic, atraumatic. No pharyngeal erythema. No thyromegaly. CARDIOVASCULAR: S1 and S2 present. No murmurs, rubs, or gallops. PULMONARY: Chest is clear to auscultation, no wheezing, rhonchi, or crackles. ABDOMEN: Soft, nontender, nondistended, normoactive bowel sounds. No palpable organomegaly. MUSCULOSKELETAL: No apparent joint swelling and deformities. EXTREMITIES: No apparent cyanosis, clubbing, or pedal edema. NEUROLOGICAL: The patient is alert and oriented x3, Gross neurological examination did not reveal any focal deficits. 5/5 Strength bilateral UE and LE SKIN: No apparent rashes. Assessment and plan Patient is a 74-year-old female with hypertension, hyperlipidemia, hypothyroidism, GERD who presents with left leg weakness. # Transient ischemic attack #Unilateral left-sided weakness Head CT indeterminate hypodense area in right caudate nucleus MRI brain pending CT angiogram head and neck unremarkable - EKGno ST elevations or T wave abnormalities or arrhythmia noted Glucose within normal limits, order HbA1c, Lipid panel, TSH - start Aspirin 325 mg qd, clopedogrel 75qd and lipitor 40mg qd for 21 days - continue home antihypertensive medication - order echocardiogram with bubble study Continuous cardiac monitoring - Fall precautions - consult PT and OT for evaluation Speech evaluation Neurology consulted Chronic Medical Conditions # Essential hypertension - Resume home losartan/hydrochlorothiazide #Hypothyroidism - Resume home Synthroid #GERD - Resume home Pantoprazole #Anxiety depression Resume Effexor F: P.o. E: Replete as needed N: N.p.o. and after regular diet after speech evaluation DVT ppx: Subcu heparin 5000 units every 12 hours Code status: Full code Anticipated discharge place: Pending clinical course Anticipated discharge time: Pending clinical course Dictation was produced using [employer] dictation software. Please excuse any grammatical, word or spelling errors. Attestation I have seen and examined this patient with my resident , discussed the same with the resident/JERAMIE, and agree with the dictator's assessment and plan as written Dr. Vick melendez Past Medical History Past Medical History: GERD/Reflux, Hypertension, Thyroid Disorder Additional Past Medical History / Comment(s): ARDS History of Any Multi-Drug Resistant Organisms: None Reported Additional Past Surgical History / Comment(s): thyroidectomy, tracheotomy Past Anesthesia/Blood Transfusion Reactions: No Reported Reaction Past Psychological History: No Psychological Hx Reported Smoking Status: Never smoker Past Alcohol Use History: None Reported Past Drug Use History: None Reported Medications and Allergies Home Medications Medication Instructions Recorded Confirmed Type Levothyroxine Sodium [Synthroid] 100 mcg PO DAILY 04/28/23 09/05/24 History Omeprazole [PriLOSEC] 20 mg PO BID 04/28/23 09/05/24 History Venlafaxine HCl [Effexor XR] 75 mg PO DAILY 04/28/23 09/05/24 History atenoloL [Tenormin] 50 mg PO DAILY 04/28/23 09/05/24 History Dicyclomine [Bentyl] 10 mg PO BID 09/05/24 09/05/24 History Losartan/Hydrochlorothiazide 1 tab PO DAILY 09/05/24 09/05/24 History [Hyzaar 100-25 Tablet] Multivitamins, Thera [Multivitamin 1 tab PO DAILY 09/05/24 09/05/24 History (formulary)] Aspirin 325 mg PO DAILY #30 tab 09/07/24 Rx Atorvastatin [Lipitor] 80 mg PO HS #30 tab 09/07/24 Rx Clopidogrel [Plavix] 75 mg PO DAILY #21 tab 09/07/24 Rx Allergies Allergy/AdvReac Type Severity Reaction Status Date / Time hydrocortisone Allergy red face & Verified 09/05/24 18:40 [From Cortizone-10] chest Sulfa (Sulfonamide Allergy Rash/Hives Verified 09/05/24 18:40 Antibiotics) sulfamethoxazole Allergy Rash/Hives Verified 09/05/24 18:40 [From Bactrim] trimethoprim [From Bactrim] Allergy Rash/Hives Verified 09/05/24 18:40 Physical Exam Vitals: Vital Signs Temp Pulse Resp BP Pulse Ox 09/06/24 06:00 67 15 138/70 98 09/06/24 00:09 66 17 131/70 96 09/05/24 20:00 98.0 F 63 18 96/62 97 09/05/24 18:00 67 18 128/71 95 09/05/24 17:00 18 09/05/24 15:09 67 18 99/60 95 09/05/24 13:53 98.7 F 78 16 143/73 9 L Results CBC & Chem 7: 09/07/24 05:58 09/07/24 05:58 Labs: Abnormal Lab Results - Last 24 Hours (Table) 09/05/24 09/05/24 Range/Units 15:53 16:06 BUN 18 H (7-17) mg/dL Glucose 145 H (74-99) mg/dL Total Bilirubin 1.6 H (0.2-1.3) mg/dL Ur Leukocyte Esterase Small H (Negative)
--- NOTE | 2024-09-06 18:19 | P.CNNES ---
History of Present Illness Consult date: 09/06/24 Requesting physician: Laron Palafox Reason for Consult: tia, cva History of Present Illness: This is a 74-year-old woman who presents emergency department because of left leg weakness. She is accompanied with her . Patient stated that her symptoms began this past Monday in which her left leg gave out and she fell did not hit her head and it resolved. She also stated that she had numbness of the left upper extremity. She was seen by her primary care physician this past Monday and he ordered a CT of the head carotid duplex. Yesterday she had another episode of left leg weakness which lasted a few minutes. So as a result she came to the hospital yesterday. She was recently started on aspirin 325 daily this past week by her primary care as a result of her strokelike symptoms. She is on pravastatin 4 mg daily. She denies any history of stroke or TIAs. She feels back to baseline. Denies any neck pain. She has chronic lower back pain but denies any worsening of lower back pain. She does have underlying history of hypertension hypercholesteremia. She has underlying history of multi nodular goiter and she had resection in the past. Denies of any tobacco use. Some of the workup during this hospital visit consisted of: Panel is triglyceride 233, cholesterol is 239, LDL is 144 and HDL is 46. I reviewed the rest of the lab workup CT of the head is reported as indeterminate hypodense area near the right caudate nucleus possibly anterior limb of the internal capsule. Correlate with MRI to exclude acute/subacute CVA. I did review the CT and I feel the patient has subacute stroke over the right basal ganglia. CT angiography of the head and neck is reported as no evidence of dissection of cervical internal carotid artery or vertebral artery. No any evidence of significant stenosis at the carotid bifurcation. No evidence of intracranial high-grade stenosis or intracranial aneurysm. Review of Systems As per HPI. Past Medical History Past Medical History: GERD/Reflux, Hypertension, Thyroid Disorder Additional Past Medical History / Comment(s): ARDS History of Any Multi-Drug Resistant Organisms: None Reported Additional Past Surgical History / Comment(s): thyroidectomy, tracheotomy Past Anesthesia/Blood Transfusion Reactions: No Reported Reaction Past Psychological History: No Psychological Hx Reported Smoking Status: Never smoker Past Alcohol Use History: None Reported Past Drug Use History: None Reported Medications and Allergies Home Medications Medication Instructions Recorded Confirmed Type Levothyroxine Sodium [Synthroid] 100 mcg PO DAILY 04/28/23 09/05/24 History Omeprazole [PriLOSEC] 20 mg PO BID 04/28/23 09/05/24 History Pravastatin Sodium [Pravachol] 40 mg PO MOWEFR 04/28/23 09/05/24 History Venlafaxine HCl [Effexor XR] 75 mg PO DAILY 04/28/23 09/05/24 History atenoloL [Tenormin] 50 mg PO DAILY 04/28/23 09/05/24 History Dicyclomine [Bentyl] 10 mg PO BID 09/05/24 09/05/24 History Losartan/Hydrochlorothiazide 1 tab PO DAILY 09/05/24 09/05/24 History [Hyzaar 100-25 Tablet] Multivitamins, Thera [Multivitamin 1 tab PO DAILY 09/05/24 09/05/24 History (formulary)] Allergies Allergy/AdvReac Type Severity Reaction Status Date / Time hydrocortisone Allergy red face & Verified 09/05/24 18:40 [From Cortizone-10] chest Sulfa (Sulfonamide Allergy Rash/Hives Verified 09/05/24 18:40 Antibiotics) sulfamethoxazole Allergy Rash/Hives Verified 09/05/24 18:40 [From Bactrim] trimethoprim [From Bactrim] Allergy Rash/Hives Verified 09/05/24 18:40 Physical Examination - Vital Signs Vital Signs: Vital Signs Temp Pulse Resp BP Pulse Ox 09/06/24 10:09 71 146/88 97 09/06/24 08:47 80 18 128/78 98 09/06/24 06:00 67 15 138/70 98 09/06/24 00:09 66 17 131/70 96 09/05/24 20:00 98.0 F 63 18 96/62 97 09/05/24 18:00 67 18 128/71 95 09/05/24 17:00 18 09/05/24 15:09 67 18 99/60 95 09/05/24 13:53 98.7 F 78 16 143/73 9 L GENERAL: The patient is lying in bed and is not in acute distress. NEUROLOGICAL: Higher mental function: The patient is awake, alert, oriented to self, place and time. Patient is following commands. No aphasia and no neglect. Cranial nerves: The pupils are round, equal and reactive to light and accommodation. Visual mares are full to confrontation throughout. Extraocular movement is intact no nystagmus is noted. Facial sensation is normal to touch throughout. The facial strength is normal throughout. Hearing is normal bilaterally to hand rub. Tongue is midline and moved [id number] without any difficulty. No dysarthria is noted. Shoulder shrug is normal bilaterally. Motor: The strength is 5 over 5 throughout. Normal tone and bulk. Cerebellum: Normal finger to nose bilaterally. Sensation: Sensation is normal to touch throughout. Reflexes (right/left): 2+ throughout. Plantars are downgoing bilaterally. Results - Laboratory Findings CBC and BMP: 09/05/24 15:53 09/05/24 15:53 Abnormal Lab Findings: Abnormal Labs 09/05/24 09/05/24 09/05/24 15:53 15:53 16:06 BUN 18 H Glucose 145 H Total Bilirubin 1.6 H Triglycerides 233.00 H Cholesterol 239.00 H LDL Cholesterol, Calc 144.1 H VLDL Cholesterol, Calc 46.60 H Ur Leukocyte Esterase Small H Assessment and Plan Assessment: This is a 74-year-old woman who presents to the emergency department because of intermittent left lower extremity weakness as well as she had 1 episode associated with numbness over the left upper extremity and she had 1 episode this past Monday and then had an episode yesterday. CT of the head is reported as indeterminate hypodense area near the right caudate nucleus possibly anterior limb of internal capsule and I feel in my opinion patient has subacute stroke on reviewing the imaging. Acute to subacute stroke. Presents with intermittent left lower extremity weakness and had 1 episode of left arm numbness. Current NIH stroke scale is 0. Etiology of the stroke is chronic small vessel disease due to patient risk factor of hypertension, age sex. History of hypertension History of multinodular goiter status post resection Plan: Patient was recently started on aspirin 325mg daily in the past 1 week for her stroke symptoms by her primary care physician and it was resumed in our facility. I started the patient on Plavix 75 mg daily. The patient to be on du al antiplatelets and after 21 days recommend stopping Plavix but continue aspirin indefinitely. Patient is on Lipitor 80 mg nightly for secondary stroke prophylaxis Ordered MRI of the brain, hemoglobin A1c. Pending 2D echo Continue neurochecks Cardiac monitoring PT, OT and SERVER MANAGER Oliver Will defer the rest of the medical management to primary and other specialist DVT prophylaxis her on subcu heparin 5000 units every 12 hours. Plan discussed with the patient and her was at bedside Thank you for the consultation. Dr. Dawn will resume neurology service tomorrow A.M. Time with Patient: Greater than 30
[2024-09-06] MEDS: DICYCLOMINE 10 MG CAP PO SCH (21:53)
[2024-09-06 23:46] VITALS: RESP 18
[2024-09-07 06:39] LABS: HCT 42.6 % (34.0-46.0); HGB 14.7 gm/dL (11.4-16.0); MCH 31.5 pg (25.0-35.0); MCHC 34.4 g/dL (31.0-37.0); MCV 91.7 fL (80.0-100.0); Platelet Count 243 k/uL (150-450); RBC 4.65 m/uL (3.80-5.40); RDW 13.7 % (11.5-15.5); WBC 7.9 k/uL (3.8-10.6)
[2024-09-07 07:00] LABS: ALT 23 U/L (4-34); African American GFR (CKD) >90 (>60 ml/min/1.73 sqM); Anion Gap 4 mmol/L; Blood Urea Nitrogen 16 mg/dL (7-17); Calcium 9.4 mg/dL (8.4-10.2); Carbon Dioxide 27 mmol/L (22-30); Chloride 106 mmol/L (98-107); Glucose 134 mg/dL (74-99); Non-African American GFR(CKD) 89 (>60 ml/min/1.73 sqM); Sodium 137 mmol/L (137-145); Total Bilirubin 1.5 mg/dL (0.2-1.3)
[2024-09-07 07:15] LABS: AST 42 U/L (14-36); Albumin 4.4 g/dL (3.5-5.0); Alkaline Phosphatase 65 U/L (38-126); Potassium 4.8 mmol/L (3.5-5.1); Total Protein 7.1 g/dL (6.3-8.2)
[2024-09-07] MEDS: LOSARTAN-HCTZ 50-12.5 MG 1 EACH TAB PO SCH (08:39)
[2024-09-07] MEDS: MULTIVITAMINS, THERA 1 EACH TAB PO SCH (08:40)
[2024-09-07] MEDS: PANTOPRAZOLE 40 MG TABLET PO SCH (08:40)
[2024-09-07] MEDS: VENLAFAXINE HCL ER 75 MG CAP PO SCH (08:40)
[2024-09-07] MEDS: LEVOTHYROXINE 100 MCG TAB PO SCH (08:40)
[2024-09-07] MEDS: atenoloL 50 MG TAB PO SCH (08:40)
[2024-09-07 10:03] VITALS: BP 109/63; PULSE 84; TEMP 98
--- NOTE | 2024-09-07 12:41 | P.PN ---
Subjective Progress Note Date: 09/07/24 The patient is a 74-year-old female who is seen in neurologic follow-up on September 07, 2024, in collaboration with Carmelita Blanc, via teleneurology. The patient reportedly came into the emergency department with left-sided weakness and numbness. The symptoms were sudden in onset. The patient had no difficulty with speech. CT scan of the emergency department was negative for acute hemorrhage and infarct. The patient's symptoms resolved. MRI of the brain this morning reveals no signs of ischemia or hemorrhage. The patient reports feeling well this morning. She is anxious to go home. Objective - Vital Signs Vital signs: Vital Signs Temp 97.5 F L 09/07/24 04:00 Pulse 70 09/07/24 04:00 Resp 18 09/07/24 04:00 BP 129/71 09/07/24 04:00 Pulse Ox 97 09/07/24 04:00 FiO2 Intake & Output 09/06/24 09/07/24 09/07/24 18:59 06:59 18:59 Weight 81.647 kg Other: Voiding Method Toilet # Voids 1 # Bowel Movements 1 - Exam General: The patient is seated on the edge of the bed. She is well-nourished and in no acute distress. She is completely dressed. HEENT: Head is atraumatic, normocephalic. Fundus not visualized. There is no scleral icterus. Mucous membranes are moist. Neurological examination Mental status: The patient is awake, alert and oriented x 3. Her speech is clear. There is no dysarthria or aphasia. Cranial nerves: 2-12 grossly intact. There is no evidence of facial asymmetry. Motor: Strength is 5/5 throughout Coordination: [id number], rapid alternating movements are intact. There is no pronator drift. - Labs CBC & Chem 7: 09/07/24 05:58 09/07/24 05:58 Labs: Abnormal Lab Results - Last 24 Hours (Table) 09/06/24 09/07/24 Range/Units 10:15 05:58 Glucose 134 H (74-99) mg/dL Hemoglobin A1c 6.3 H (<=6.0) % Total Bilirubin 1.5 H (0.2-1.3) mg/dL AST 42 H (14-36) U/L Assessment and Plan Assessment: 1. Transient ischemic attack-MRI of the brain is negative for acute ischemia 2. History of hypertension 3. History of multinodular goiter status post resection 4. Hypercholesterolemia with elevated LDL of 144 Plan: 1. Stroke order set has been completed at this time 2. The patient is neurologically stable for discharge 3. High-dose statin should be continued as the patient's LDL is markedly elevated 4. Diet and exercise were discussed with patient regarding further stroke prevention 5. Dual antiplatelet therapy should be continued for 21 days, then aspirin 81 mg should be continued thereafter Time with Patient: Greater than 30 (40 minutes were spent caring for this patient today including, obtaining history, examining patient, reviewing imaging, chart documentation, labs and creating this note)
--- NOTE | 2024-09-07 13:05 | P.DS ---
Providers Date of admission: 09/05/24 18:16 Expected date of discharge: 09/07/24 Attending physician: Ramona Choi Consults: 09/05/24 18:15 Consult Physician Routine Consulting Provider: Dread Cooper Consult Reason/Comments: tia,cva Do you want consulting provider notified?: Yes [facility] Course: Discharge diagnoses; # Transient ischemic attack #Unilateral left-sided weakness # Essential hypertension #Hypothyroidism #GERD #Anxiety depression Hospital course; Patient is medically stable and cleared for discharge to home. Patient to begin aspirin, Plavix, atorvastatin. Take Plavix for 21 days after which this can be stopped. Atorvastatin and aspirin is recommended to continue. To follow-up on echocardiogram which was pending on discharge. Patient to follow-up with her PCP. History of present illness; Patient is a 74-year-old female with hypertension, hyperlipidemia, hypothyroidism, GERD who presents with left leg weakness. Patient states symptoms began on Monday with left leg weakness and fall. At that time she also states she had some left arm tingling. Symptoms recurred again yesterday and lasted for 5 to 10 minutes. Patient states she has no other symptoms at this time, no facial droop or slurred speech. She states she has no history of stroke. Currently patient reports absence of chest pain, palpitations, dyspnea, cough, weakness, dizziness, headache, and dysuria. Labs significant for BUN 18, glucose 145, total bilirubin 1.6, UA with leukocyte esterase small. EKG done in the ER independently interpreted showed heart rate of 58, no ST segment elevation or depression seen, no T-wave inversions seen. Chest x-ray done independently interpreted in the ER showed no acute process CT head done independently interpreted showed indeterminate hypodense area in right caudate nucleus, possibly anterior limb of the internal capsule CTA head and neck done independently interpreted showed no significant stenosis, aneurysm or thrombus in the intracranial circulation. MRI brain with no evidence of acute or subacute infarction or intracranial mass. During hospital stay patient was given aspirin, clopidogrel and Lipitor. Resulting MRI with no evidence of acute or subacute infarction. Echocardiogram is pending. Patient was followed by neurology during stay. PHYSICAL EXAMINATION: Vitals reviewed GENERAL: No acute distress. Well developed, well nourished. HEENT: Pupils are round and equally reacting to light. EOMI. No scleral icterus. Normocephalic, atraumatic. CARDIOVASCULAR: S1 and S2 present. No murmurs, rubs, or gallops. PULMONARY: Chest is clear to auscultation, no wheezing, rhonchi, or crackles. ABDOMEN: Soft, nontender, nondistended, normoactive bowel sounds. No palpable organomegaly. MUSCULOSKELETAL: No apparent joint swelling and deformities. EXTREMITIES: No apparent cyanosis, clubbing, or pedal edema. NEUROLOGICAL: The patient is alert and oriented x3, Gross neurological examination did not reveal any focal deficits. 5/5 Strength bilateral UE and LE SKIN: No apparent rashes. Dictation was produced using [employer] dictation software. please excuse any grammatical, word or spelling errors. Attestation I have seen and examined this patient with my resident , discussed the same with the resident/JERAMIE, and agree with the dictator's assessment and plan as written Dr. Vick melendez Patient Condition at Discharge: Stable Plan - Discharge Summary Discharge Rx Participant: Yes New Discharge Prescriptions: New Clopidogrel [Plavix] 75 mg PO DAILY #21 tab Aspirin 325 mg PO DAILY #30 tab Atorvastatin [Lipitor] 80 mg PO HS #30 tab Continue atenoloL [Tenormin] 50 mg PO DAILY Losartan/Hydrochlorothiazide [Hyzaar 100-25 Tablet] 1 tab PO DAILY Venlafaxine HCl [Effexor XR] 75 mg PO DAILY Omeprazole [PriLOSEC] 20 mg PO BID Levothyroxine Sodium [Synthroid] 100 mcg PO DAILY Multivitamins, Thera [Multivitamin (formulary)] 1 tab PO DAILY Dicyclomine [Bentyl] 10 mg PO BID Discontinued Pravastatin Sodium [Pravachol] 40 mg PO MOWEFR Discharge Medication List Levothyroxine Sodium [Synthroid] 100 mcg PO DAILY 04/28/23 [History] Omeprazole [PriLOSEC] 20 mg PO BID 04/28/23 [History] Venlafaxine HCl [Effexor XR] 75 mg PO DAILY 04/28/23 [History] atenoloL [Tenormin] 50 mg PO DAILY 04/28/23 [History] Dicyclomine [Bentyl] 10 mg PO BID 09/05/24 [History] Losartan/Hydrochlorothiazide [Hyzaar 100-25 Tablet] 1 tab PO DAILY 09/05/24 [History] Multivitamins, Thera [Multivitamin (formulary)] 1 tab PO DAILY 09/05/24 [History] Aspirin 325 mg PO DAILY #30 tab 09/07/24 [Rx] Atorvastatin [Lipitor] 80 mg PO HS #30 tab 09/07/24 [Rx] Clopidogrel [Plavix] 75 mg PO DAILY #21 tab 09/07/24 [Rx] Follow up Appointment(s)/Referral(s): Taqueria Pelletier MD [Primary Care Provider] - 1-2 days Patient Instructions/Handouts: Transient Ischemic Attack (DC) Activity/Diet/Wound Care/Special Instructions: continue aspirin, plavix for 21 days recommend stopping Plavix after 21 days but continue aspirin indefinitely. Discharge Disposition: HOME SELF-CARE
--- NOTE | 2024-09-07 14:18 | CA ---
Transthoracic Echo Report Name: Suma Tay Age: 74 Gender: F : 1950 Exam Date: 09/06/2024 14:26 Exam Location: [facility] Ht (in): 62 Wt (lb): 180 Ordering Physician: Laron Palafox DO Attending/Referring Phys: [id number], Javy Tubing Drier Naima Ennis RDCS Procedure CPT: Indications: Thrombus Cardiac Hx: Technical Quality: Good Contrast 1: Total Dose (mL): Contrast 2: Total Dose (mL): MEASUREMENTS (Male / Female) Normal Values 2D ECHO LV Diastolic Diameter PLAX 4.4 cm 4.2 - 5.9 / 3.9 - 5.3 cm LV Systolic Diameter PLAX 3.0 cm IVS Diastolic Thickness 1.0 cm 0.6 - 1.0 / 0.6 - 0.9 cm LVPW Diastolic Thickness 1.0 cm 0.6 - 1.0 / 0.6 - 0.9 cm LV Relative Wall Thickness 0.5 LVOT Diameter 2.1 cm LV Diastolic Volume MOD BP 88.9 cm??? 67 - 155 / 56 - 104 cm??? LV Systolic Volume MOD BP 28.6 cm??? 22 - 58 / 19 - 49 cm??? LV Ejection Fraction MOD BP 67.8 % >= 55 % LV Cardiac Index MOD BP 2004.7 cm???/min???m??? LV Diastolic Volume MOD 4C 75.8 cm??? LV Systolic Volume MOD 4C 25.5 cm??? LV Ejection Fraction MOD 4C 66.4 % LV Cardiac Index MOD 4C 1674.8 cm???/min???m??? LV Diastolic Length 4C 7.2 cm LV Systolic Length 4C 5.7 cm LV Diastolic Volume MOD 2C 99.7 cm??? LV Systolic Volume MOD 2C 30.8 cm??? LV Ejection Fraction MOD 2C 69.0 % LV Cardiac Index MOD 2C 2289.0 cm???/min???m??? LV Diastolic Length 2C 7.5 cm LV Systolic Length 2C 5.4 cm LA Volume 57.7 cm??? 18 - 58 / 22 - 52 cm??? LA Volume Index 30.0 cm???/m??? 16 - 28 cm???/m??? Ascending Aorta Diameter 3.2 cm DOPPLER AV Peak Velocity 213.8 cm/s AV Peak Gradient 18.3 mmHg AV Mean Velocity 149.6 cm/s AV Mean Gradient 9.9 mmHg AV Velocity Time Integral 43.8 cm LVOT Peak Velocity 126.4 cm/s LVOT Peak Gradient 6.4 mmHg LVOT Velocity Time Integral 26.5 cm LVOT Stroke Volume 91.8 cm??? LVOT Stroke Volume Index 50.2 ml/m??? LVOT Cardiac Index 3054.8 cm???/min???m??? AV Area Cont Eq vti 2.1 cm??? AV Area Cont Eq pk 2.1 cm??? MV Area PHT 4.0 cm??? Mitral E Point Velocity 53.5 cm/s Mitral A Point Velocity 89.1 cm/s Mitral E to A Ratio 0.6 MV Deceleration Time 188.7 ms PV Peak Velocity 96.9 cm/s PV Peak Gradient 3.8 mmHg FINDINGS Left Ventricle Left ventricular ejection fraction is estimated at 60-65 %. Mildly increased septal wall thickness. Mildly increased posterior wall thickness. Left ventricular cavity size normal. No obvious regional wall motion abnormalities. Right Ventricle Normal right ventricular size and function. Unable to estimate the right ventricular systolic pressure. Right Atrium Normal right atrial size. Left Atrium Mildly increased left atrial volume. Mitral Valve Structurally normal mitral valve. No evidence for mitral valve prolapse. No mitral stenosis. Trace mitral regurgitation. Aortic Valve Trileaflet aortic valve. Trivial aortic stenosis. Mean gradient 10mmHg. Trace aortic regurgitation. Tricuspid Valve Structurally normal tricuspid valve. No tricuspid stenosis. Trace tricuspid regurgitation. Pulmonic Valve Structurally normal pulmonic valve. No pulmonic stenosis. Trace pulmonic regurgitation. Pericardium No pericardial effusion. Aorta Normal size aortic root and proximal ascending aorta. CONCLUSIONS Diagnosis arterial occlusion left lower extremity, evaluate for LV thrombus Normal LV size and function with mild hypertrophy Normal RV size and function No intracardiac mass or thrombus Previewed by: Dr. Flavio Moyer MD (Electronically Signed) Final Date: 07 September 2024 14:17
== END 2024-09-07 12:47 | disposition home or self-care (01) ==
LOC: EC 13:51 → 3SCARD 18:16
PROVIDERS: ADMIT Hospitalist; ATTEND Hospitalist
DX: G45.9 Transient cerebral ischemic attack, unspecified (principal); R29.700 NIHSS score 0; I10 Essential (primary) hypertension; E03.9 Hypothyroidism, unspecified; K21.9 Gastro-esophageal reflux disease without esophagitis; F41.9 Anxiety disorder, unspecified; F32.A Depression, unspecified; G89.29 Other chronic pain; M54.50 Low back pain, unspecified; Z79.890 Hormone replacement therapy; Z79.82 Long term (current) use of aspirin; Z79.02 Long term (current) use of antithrombotics/antiplatelets; Z79.899 Other long term (current) drug therapy; Z88.2 Allergy status to sulfonamides; Z88.8 Allergy status to other drugs, medicaments and biological substances
CPT/HCPCS: 96372 ×2; 96360; 96361; 99285; 36415; 93005; 93306; 97161; 92610; 92523; 80061; 80053 ×2; 84443; 83605; 83735; 84100; 84484; 85025; 85027; 85610; 85730; 81001; 83036; 71046; 70496; 70450; 70498; 70551; G0378 ×3; J1644 ×2; Q9967